=== PATIENT | female | born 1965 | race Caucasian/White ===

== ENCOUNTER 2016-06-10 15:38 | Emergency (ER) | payer MEDICAID | END 2016-06-10 20:08 | disposition home or self-care (01) | DX: K59.00 Constipation, unspecified (principal); D68.51 Activated protein C resistance; Z79.01 Long term (current) use of anticoagulants; Z90.3 Acquired absence of stomach [part of]; Z86.718 Personal history of other venous thrombosis and embolism; Z86.711 Personal history of pulmonary embolism; I10 Essential (primary) hypertension; Z98.84 Bariatric surgery status; Z98.0 Intestinal bypass and anastomosis status ==

== ENCOUNTER 2016-06-13 09:38 | Emergency (ER) | payer MEDICAID ==
[2016-06-13] MEDS ORDERED: SODIUM CHLORIDE 0.9% 1,000 ML IV ONE ×2 (12:11→12:12)
[2016-06-13] MEDS ORDERED: PROMETHAZINE INJ 12.5 MG in SODIUM CHLORIDE 0.9% 50 ML IV STA (12:11)
[2016-06-13] MEDS ORDERED: POLYETHYLENE GLYCOL 3350 17 GM PACKET PO STA (12:11)
[2016-06-13] MEDS ORDERED: PROMETHAZINE 25 MG/1 ML VIAL ONE (12:19)
[2016-06-13] MEDS ORDERED: POLYETHYLENE GLYCOL 3350 17 GM PACKET ONE (12:19)
== END 2016-06-13 15:12 | disposition home or self-care (01) ==
DX: K62.5 Hemorrhage of anus and rectum (principal); K59.00 Constipation, unspecified; R11.2 Nausea with vomiting, unspecified; L02.818 Cutaneous abscess of other sites; Z59.0 Homelessness; Z86.711 Personal history of pulmonary embolism; Z86.718 Personal history of other venous thrombosis and embolism
CPT/HCPCS: 36415; 80053; 81003; 83690; 85025; 96361; 96365; 99283; 99284; A9270

== ENCOUNTER 2016-07-06 11:03 | Emergency (ER) | payer MEDICAID ==
[2016-07-06] MEDS ORDERED: DEXAMETHASONE 10 MG/ML VIAL PO STA (11:46)
[2016-07-06] MEDS ORDERED: DEXAMETHASONE 10 MG/ML VIAL ONE (11:52)
[2016-07-06] MEDS ORDERED: CHERRY SYRUP 10 ML UDC PO ONE (11:52)
== END 2016-07-06 12:50 | disposition home or self-care (01) ==
DX: S29.011A Strain of muscle and tendon of front wall of thorax, initial encounter (principal); X58.XXXA Exposure to other specified factors, initial encounter; I10 Essential (primary) hypertension; Z86.711 Personal history of pulmonary embolism; Z86.718 Personal history of other venous thrombosis and embolism; Z79.01 Long term (current) use of anticoagulants
CPT/HCPCS: 71101; 99283; A9270

== ENCOUNTER 2017-01-30 11:14 | Emergency (ER) | payer MEDICAID ==
[2017-01-30 11:35] VITALS: BP 141/90
--- NOTE | 2017-01-30 12:19 | ED Physician Documentation ---
PD HPI LOWER EXT INJURY - Stated complaint Stated Complaint: R ANKLE INJ - Chief complaint Chief Complaint: Ext Problem - History obtained from History obtained from: Patient - History of Present Illness PD HPI LOW EXT INJURY LOCATION: Other (She broke her right ankle 9 months ago, she says she was really noncompliant with treatment, was walking on it not wearing the boot and it never really healed well. 3 weeks ago she had an inversion injury of that ankle and fell, also injuring her left morrison and left great toe. She does have a history of DVT with factor V Leiden and is maintained on Eliquis with which she is compliant.) Review of Systems Cardiac: denies: Chest pain / pressure, Palpitations Respiratory: denies: Dyspnea, Cough GI: denies: Abdominal Pain PD PAST MEDICAL HISTORY - Past Medical History Past Medical History: Yes Cardiovascular: Hypertension, Deep vein thrombosis, Pulmonary embolism, Other Respiratory: None Neuro: Seizure disorder Endocrine/Autoimmune: None GI: Other : None HEENT: None Psych: Depression, Anxiety, Panic attacks, Post traumatic stress disorder Musculoskeletal: None Derm: None, Other - Past Surgical History Past Surgical History: Yes 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, Hysterectomy, Breast reduction Cardiovascular: Vascular surgery HEENT: Tonsil/Adenoidectomy - Present Medications Home Medications: Ambulatory Orders Medication Instructions Recorded Confirmed Lorazepam [Ativan] 1 mg PO TID 02/09/15 07/06/16 QUEtiapine [SEROquel] 600 mg PO QPM 02/09/15 07/06/16 Apixaban [Eliquis] 5 mg PO BID 06/10/16 07/06/16 Levetiracetam 1,000 mg PO BID 06/10/16 07/06/16 Prazosin [Minipress] 10 mg PO DAILY 06/10/16 07/06/16 Venlafaxine HCl [Effexor Xr] 300 mg PO DAILY 06/10/16 07/06/16 Promethazine [Phenergan] 25 mg PO Q6H PRN #30 tab 06/13/16 07/06/16 HYDROcod/ACETAM 5/325 [[place] 5/325] 1 - 2 ea PO Q6H PRN #15 tablet 07/06/16 HYDROcod/ACETAM 5/325 [[place] 5/325] 1 - 2 ea PO Q6H PRN #15 tablet 01/30/17 - Allergies Allergies/Adverse Reactions: Allergies Allergy/AdvReac Type Severity Reaction Status Date / Time cephalexin monohydrate * Allergy Welts Verified 07/06/16 11:10 [From [employer]] - Social History Does the pt smoke?: No Smoking Status: Never smoker Does the pt drink ETOH?: Yes Does the pt have substance abuse?: No - Immunizations Immunizations are current?: Yes - POLST Patient has POLST: No PD ED PE NORMAL - Vitals Vital signs reviewed: Yes - General General: Alert and oriented X 3, No acute distress - Extremities Extremities: Other (Right ankle is mildly swollen but nontender with full range of motion. The left morrison is tender anteriorly with some calf swelling but no calf tenderness. That was the site of her prior DVT and she says the swelling is chronic. She also has a 50% subungual hematoma of the left great toe and it is tender.) - Neuro Neuro: Alert and oriented X 3, Normal speech - Psych Psych: Normal mood, Normal affect Results - Vitals Vitals: Vital Signs - 24 hr 01/30/17 11:30 Temperature 35.8 C L Heart Rate 76 Respiratory 16 Rate Blood Pressure 141/90 H O2 Saturation 100 Oxygen O2 Source Room air - Rads (name of study) X-ray of the right ankle, left big toe, and left tib-fib Radiology: EMP read contemporaneously (Left side is negative, there is a incomplete union of the Blair B fracture of the right ankle.) PD MEDICAL DECISION MAKING - ED course ED course: 51-year-old woman with musculoskeletal injuries of both lower extremities, the right ankle and left tib-fib. DVT was considered, however the mechanism of injury explains her tenderness and she is therapeutically anticoagulated. The ankle has an incomplete union, 9 months later, she admits to being noncompliant with nonweightbearing status and orthopedic follow-up, she is encouraged to follow-up with an orthopedist now. She has been weightbearing for 9 months so I do not think there is any reason to make her nonweightbearing pending that follow-up. Departure - Departure Disposition: 01 Home, Self Care Clinical Impression: Anticoagulant long-term use Sprain of left knee/leg Qualifiers: Encounter type: initial encounter Qualified Code(s): S83.92XA - Sprain of unspecified site of left knee, initial encounter Closed right ankle fracture Qualifiers: Encounter type: subsequent encounter Fracture healing: with delayed healing Qualified Code(s): S82.891G - Other fracture of right lower leg, subsequent encounter for closed fracture with delayed healing Contusion of toe, left Qualifiers: Encounter type: initial encounter Toe: great toe Damage to nail status: with damage Qualified Code(s): S90.212A - Contusion of left great toe with damage to nail, initial encounter Condition: Good Record reviewed to determine appropriate education?: Yes Instructions: Ankle Fx Follow-Up: [facility] [Provider Group] Prescriptions: HYDROcod/ACETAM 5/325 [[place] 5/325] 1 - 2 ea PO Q6H PRN #15 tablet PRN Reason: Pain Comments: Call the orthopedic office today for a follow-up appointment. Return if worse. Your blood pressure was elevated today on check into the emergency department. This does not mean that you have hypertension, it is a common phenomenon to come to the emergency department and have elevated blood pressure. I recommend that she see your primary care physician within the week to have it rechecked when you are feeling better. Do not drink or drive while taking narcotic pain medication. Note that many narcotic pain relievers also contain Tylenol/acetaminophen. Please ensure that your total dose of acetaminophen from all sources does not exceed 3 g (3000 mg) per day. You may get constipated while on this medication. Take a stool softener such as Colace twice a day while you are on it. Also add an [id number] laxative such as senna or MiraLAX on any day that you do not have a bowel movement. If you received a narcotic pain medication or sedative while in the emergency department, do not drive for the next 24 hours.
--- NOTE | 2017-01-30 13:56 | XRAY Preliminary Report ---
Exam: XR Ankle 3 View RT IMPRESSION: 1. Consistent with healing distal fibular fracture (Bliar B) with incomplete osseous union. 2. Equivocal minor joint effusion and anterior soft tissue swelling. [facility] SITE ID: [id number]
--- NOTE | 2017-01-30 13:58 | XRAY Preliminary Report ---
Exam: XR Toe(s) LT IMPRESSION: 1. No convincing fracture or bony malalignment. [facility] SITE ID: [id number]
--- NOTE | 2017-01-30 13:58 | XRAY Report ---
EXAM: RIGHT ANKLE RADIOGRAPHY EXAM DATE: 01/30/2017 12:45 PM. CLINICAL HISTORY: Right ankle pain and swelling/ injury. COMPARISON: None available. TECHNIQUE: 3 views. FINDINGS: Bones: Mildly distracted oblique fracture of distal fibula at and above the level of the ankle joint. Fracture lines are somewhat indistinct and there is some reactive bony sclerosis by the fracture sit e. No angular deformity. No other focal bony abnormality. Joints: No subluxation or gross mortise asymmetry. Equivocal minor ankle joint effusion. Soft Tissues: Possible anterior soft tissue swelling. IMPRESSION: 1. Consistent with healing distal fibular fracture (Blair B) with incomplete osseous union. 2. Equivocal minor joint effusion and anterior soft tissue swelling. [facility] Referring Provider Line: [phone] SITE ID: [id number]
--- NOTE | 2017-01-30 14:00 | XRAY Preliminary Report ---
Exam: XR Tib/Fib LT IMPRESSION: 1. No fracture or bony malalignment. [facility] SITE ID: [id number]
--- NOTE | 2017-01-30 14:01 | XRAY Report ---
EXAM: RIGHT GREAT TOE RADIOGRAPHY EXAM DATE: 01/30/2017 01:10 PM. CLINICAL HISTORY: Box fell on great toe. Swelling and discoloration distal great toe. COMPARISON: None. TECHNIQUE: 3 views. FINDINGS: Bones: No apparent fracture or bone lesion. Joints: No subluxation. Joint spaces are preserved. Soft Tissues: Some soft tissue swelling. Modest vascular calcification noted. IMPRESSION: 1. No convincing fracture or bony malalignment. [facility] Referring Provider Line: [phone] SITE ID: [id number]
--- NOTE | 2017-01-30 14:03 | XRAY Report ---
EXAM: 1. TIBIA/FIBULA RADIOGRAPHY EXAM DATE: 01/30/2017 01:08 PM. CLINICAL HISTORY: Edema and discoloration upper anterior medial lower leg. Object fell on leg. COMPARISON: None. TECHNIQUE: 2 views. FINDINGS: Bones: No fracture or bone lesion. Joints: No subluxation of knee and ankle joints. Soft Tissues: Some soft tissue swelling. No soft tissue emphysema or radiopaque foreign body. IMPRESSION: 1. No fracture or bony malalignment. [facility] Referring Provider Line: [phone] SITE ID: [id number]
== END 2017-01-30 14:36 | disposition home or self-care (01) ==
LOC: ED 11:14
DX: S83.92XA Sprain of unspecified site of left knee, initial encounter (principal); S82.891G Other fracture of right lower leg, subsequent encounter for closed fracture with delayed healing; S90.212A Contusion of left great toe with damage to nail, initial encounter; W19.XXXA Unspecified fall, initial encounter; X50.9XXA Other and unspecified overexertion or strenuous movements or postures, initial encounter; I10 Essential (primary) hypertension; D68.51 Activated protein C resistance; Z86.718 Personal history of other venous thrombosis and embolism; Z86.711 Personal history of pulmonary embolism; Z79.01 Long term (current) use of anticoagulants
CPT/HCPCS: 73660; 99283; 99284

== ENCOUNTER 2018-01-23 15:53 | Outpatient (CLI) | payer MEDICAID | END 2018-01-23 15:54 | disposition home or self-care (01) | LOC: LAB.R 15:53 | PROVIDERS: ATTEND Obstetrics & Gynecology | DX: N76.5 Ulceration of vagina (principal) | CPT/HCPCS: 81599 ==

== ENCOUNTER 2018-01-23 16:01 | Outpatient (CLI) | payer MEDICAID ==
[2018-01-23 20:31] LABS: FOLLICLE STIMULATING HORMONE 95.41 mIU/mL
[2018-01-23 20:32] LABS: LUTEINIZING HORMONE 88.49 mIU/mL
== END 2018-01-23 16:02 | disposition home or self-care (01) ==
LOC: LAB 16:01
PROVIDERS: ATTEND Obstetrics & Gynecology
DX: N95.1 Menopausal and female climacteric states (principal); N76.5 Ulceration of vagina
CPT/HCPCS: 36415; 81599; 82670; 83001; 83002

== ENCOUNTER 2019-03-09 12:01 | Outpatient (CLI) | payer MEDICAID ==
[2019-03-09 12:25] LABS: BASOPHILS % (AUTO) 0.5 %; EOSINOPHILS % (AUTO) 0.4 %; HGB - HEMOGLOBIN 10.7 g/dL (12.0-16.0); LYMPHOCYTES # (AUTO) 1.2 10^3/uL (1.5-3.5); LYMPHOCYTES % (AUTO) 14.9 %; MEAN CORPUSCULAR HEMOGLOBIN 25.9 pg (27.0-31.0); MEAN CORPUSCULAR HGB CONC 31.1 g/dL (32.0-36.0); MEAN CORPUSCULAR VOLUME 83.3 fL (81.0-99.0); MEAN PLATELET VOLUME 9.7 fL (7.9-10.8); MONOCYTES # (AUTO) 0.7 10^3/uL (0.0-1.0); MONOCYTES % (AUTO) 8.7 %; NEUTROPHILS # (AUTO) 6.1 10^3/uL (1.5-6.6); NEUTROPHILS % (AUTO) 75.1 %; PLT - PLATELET COUNT 233 10^3/uL (130-450); RED BLOOD COUNT 4.13 10^6/uL (4.20-5.40); WHITE BLOOD COUNT 8.1 x10^3/uL (4.8-10.8)
[2019-03-09 13:02] LABS: PLATELET ESTIMATE, MANUAL NORMAL (130-450,000) (NORMAL); PLATELET MORPHOLOGY NORMAL APPEARANCE (NORMAL)
[2019-03-09 14:09] LABS: ALBUMIN 3.3 g/dL (3.2-5.5); ALBUMIN/GLOBULIN RATIO 0.8 (1.0-2.2); BILIRUBIN,TOTAL 1.1 mg/dL (0.2-1.0); CALCIUM 8.8 mg/dL (8.5-10.3); CREATININE 0.8 mg/dL (0.4-1.0); TOTAL PROTEIN 7.4 g/dL (6.7-8.2)
== END 2019-03-09 12:02 | disposition home or self-care (01) ==
LOC: LAB 12:01
PROVIDERS: ATTEND Family Medicine
DX: Z79.01 Long term (current) use of anticoagulants (principal); D68.51 Activated protein C resistance; R10.11 Right upper quadrant pain; I10 Essential (primary) hypertension
CPT/HCPCS: 36415; 80053; 83690; 85025

== ENCOUNTER 2019-04-06 10:50 | Emergency (ER) | payer MEDICAID ==
--- NOTE | 2019-04-06 12:36 | ED Physician Documentation ---
PD HPI GI BLEED - Stated complaint Stated Complaint: FEMALE - Chief complaint Chief Complaint: General - History obtained from History obtained from: Patient - History of Present Illness Timing - onset: How many days ago (few) Timing - duration: Days (few) Timing - details: Gradual onset, Still present (noted feeling of "ball" in rectal area with BMs. Having stool out and hurting. Noted red blood with wiping. NO abd pain. No fever.), Intermittant (with BM only initially, today with persistent rectal pain after BM and still feels like mass at rectum.) Associated symptoms: BRBPR, Constipation (feels firm stools). No: Vomiting, Abdominal pain, Loss of appetite Contributing factors: Anticoagulated. No: Sick contact, NSAID use Similar symptoms before: Has not had sx before Recently seen: Not recently seen Review of Systems Constitutional: reports: Myalgias (chronic). denies: Fever, Chills GI: reports: Constipation, Bloody / black stool. 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, Hysterectomy, Breast reduction Cardiovascular: Vascular surgery HEENT: Tonsil/Adenoidectomy - Present Medications Home Medications: Ambulatory Orders Medication Instructions Recorded Confirmed Lorazepam [Ativan] 1 mg PO TID 02/09/15 09/30/18 Apixaban [Eliquis] 5 mg PO BID 06/10/16 09/30/18 Prazosin [Minipress] 10 mg PO DAILY 06/10/16 09/30/18 levETIRAcetam [Levetiracetam] 1,000 mg PO BID 06/10/16 09/30/18 Promethazine [Phenergan] 25 mg PO Q6H PRN #30 tab 06/13/16 09/30/18 Lisinopril 10 mg PO DAILY 09/30/18 09/30/18 traZODone [Desyrel] 1 each PO QPM 09/30/18 09/30/18 Estradiol [Vagifem] 1 each VG Q48H 10/05/18 10/05/18 Ibuprofen [Motrin] 1 - 2 cap PO Q6HR PRN 10/05/18 10/05/18 Docusate Sodium 100 mg PO DAILY #30 capsule 04/06/19 Hydrocortisone Acetate [Anucort-Hc] 25 mg RC DAILY #5 supp.rect 04/06/19 Lidocaine Ointment 5% [Xylocaine 1 applic TOP QID PRN #1 tube 04/06/19 Ointment 5%] - Allergies Allergies/Adverse Reactions: Allergies Allergy/AdvReac Type Severity Reaction Status Date / Time cephalexin monohydrate * Allergy Welts Verified 07/06/16 11:10 [From [employer]] - Social History Does the pt smoke?: No Smoking Status: Unknown if ever smoked Does the pt drink ETOH?: Yes Does the pt have substance abuse?: No - Immunizations Immunizations are current?: Yes - POLST Patient has POLST: No PD ED PE NORMAL - Vitals Vital signs reviewed: Yes - General General: Alert and oriented X 3, No acute distress, Well developed/nourished - Cardiac Cardiac: RRR, No murmur - Respiratory Respiratory: Clear bilaterally - Abdomen Abdomen: Soft, Non tender, Non distended - Female Female : Deferred - Rectal Rectal: Other (external is okay, though small serosal tear visible, not bleeding. Digital exam tender with palpable hemorrhoid that is not hard. ) - Back Back: No CVA TTP - Derm Derm: Normal color, Warm and dry Results - Vitals Vitals: Vital Signs - 24 hr 04/06/19 04/06/19 11:12 12:53 Temperature 37.7 C H 37.4 C Heart Rate 117 H 82 Respiratory 18 16 Rate Blood Pressure 143/97 H 148/91 H O2 Saturation 99 99 Oxygen O2 Source Room air PD MEDICAL DECISION MAKING - ED course Complexity details: considered differential (external is okay, though small serosal tear visible, not bleeding. Digital exam tender with palpable hemorrhoid that is not hard. ), d/w patient Departure - Departure Disposition: 01 Home, Self Care Clinical Impression: Rectal pain, Internal hemorrhoid Serosal tear of rectum Qualifiers: Encounter type: initial encounter Qualified Code(s): S36.63XA - Laceration of rectum, initial encounter Condition: Stable Record reviewed to determine appropriate education?: Yes Instructions: ED Hemorrhoids Follow-Up: JAIME ARANGO [Primary Care Provider] - Prescriptions: Docusate Sodium 100 mg PO DAILY #30 capsule Hydrocortisone Acetate [Anucort-Hc] 25 mg RC DAILY #5 supp.rect Lidocaine Ointment 5% [Xylocaine Ointment 5%] 1 applic TOP QID PRN #1 tube PRN Reason: Pain Comments: Stay well-hydrated. Tylenol if needed for pains. Use the steroid suppository daily to decrease inflammation and provide lubrication at the rectal opening. This should help heal up the small tear more easily and decrease inflammation of the internal hemorrhoid. You can use lidocaine topically to try to help with the pain as well. Docusate stool softener daily for the next week or 2 and then as needed. Recheck if not improving well over the next few days. Discharge Date/Time: 04/06/19 13:14
[2019-04-06 12:53] VITALS: BP 148/91
[2019-04-06] MEDS ORDERED: DOCUSATE SODIUM 100 MG CAPSULE PO STA (12:56)
[2019-04-06] MEDS ORDERED: ACETAMINOPHEN 325 MG TABLET PO STA (12:56)
[2019-04-06] MEDS ORDERED: HYDROCORTISONE 25 MG SUPPOSITORY PR STA (12:56)
[2019-04-06] MEDS ORDERED: LIDOCAINE OINTMENT 5% 35.44 GM TUBE TOP STA (13:06)
== END 2019-04-06 13:14 | disposition home or self-care (01) ==
LOC: ED 10:50
DX: S36.63XA Laceration of rectum, initial encounter (principal); X58.XXXA Exposure to other specified factors, initial encounter; K64.8 Other hemorrhoids; K59.00 Constipation, unspecified; I10 Essential (primary) hypertension; Z86.718 Personal history of other venous thrombosis and embolism; Z86.711 Personal history of pulmonary embolism; Z79.01 Long term (current) use of anticoagulants
CPT/HCPCS: 99283; A9270; J3490

== ENCOUNTER 2019-04-09 09:32 | Outpatient (CLI) | payer MEDICAID ==
[2019-04-09] MEDS ORDERED: IOVERSOL 320 100 ML VIAL IVP ONE (10:10)
[2019-04-09] MEDS ORDERED: IOVERSOL 320 50 ML VIAL ONE (10:10)
[2019-04-09] MEDS: IOVERSOL 320 100 ML VIAL IVP ONE (15:58)
[2019-04-09] MEDS: IOVERSOL 320 50 ML VIAL PO SCH (15:59)
--- NOTE | 2019-04-10 16:50 | CT Report ---
Reason: ABD PAIN AND WEIGHT LOSS Procedure Date: 04/09/2019 Accession Number: [id number] / [id number] Procedure: CT - Abdomen/Pelvis W CPT Code: Final Report FULL RESULT: EXAM: CT ABDOMEN AND PELVIS EXAM DATE: 04/09/2019 11:52 AM. CLINICAL HISTORY: ABD PAIN AND WEIGHT LOSS. COMPARISONS: ABDOMEN/PELVIS W/O 06/10/2016 6:21 PM. TECHNIQUE: Routine helical CT imaging was performed through the abdomen and pelvis. IV contrast: OPTI 320 100ML. Enteric contrast: Yes. Reconstructions: Coronal and sagittal. In accordance with CT protocol optimization, one or more of the following dose reduction techniques were utilized for this exam: automated exposure control, adjustment of mA and/or KV based on patient size, or use of iterative reconstructive technique. FINDINGS: Lung Bases: Unremarkable. Liver: Enlarged right hepatic lobe measuring 25 cm in length. Diffuse low attenuation consistent with hepatic steatosis. Gallbladder/Bile Ducts: Cholecystectomy. Common bile duct measures 10 mm. Spleen: Calcified granulomas. Pancreas: Normal. Adrenal Glands: Normal. Kidneys: No masses or hydronephrosis. Peritoneal Cavity/Bowel: No free fluid, free air or adenopathy. Vickey-en-Y gastric bypass. No evidence of small bowel obstruction, with oral contrast seen extending into the ileum. Appendix not visualized, however no secondary signs of inflammation in the right lower quadrant. Pelvic Organs: Status post hysterectomy. Vasculature: No aneurysms or other significant abnormality. Bones: Schmorl's nodes in the T11, T12, and L2 superior endplates with associated mild wedging, stable. Other: None. IMPRESSION: 1. Vickey-en-Y gastric bypass without evidence of bowel obstruction. 2. Enlarged steatotic liver. [facility]
== END 2019-04-09 09:33 | disposition home or self-care (01) ==
LOC: DI 09:32
PROVIDERS: ATTEND Family Medicine
DX: R10.9 Unspecified abdominal pain (principal); K76.0 Fatty (change of) liver, not elsewhere classified; R63.4 Abnormal weight loss; Z98.84 Bariatric surgery status
CPT/HCPCS: 74177; Q9967

== ENCOUNTER 2019-06-05 13:14 | Emergency (ER) | payer MEDICAID ==
--- NOTE | 2019-06-05 14:06 | ED Physician Documentation ---
History of Present Illness - Stated complaint Stated Complaint: LT LEG SWELLING W/ PX - Chief complaint Chief Complaint: Ext Problem - History obtained from History obtained from: Patient - History of Present Illness Timing: Other (53-year-old woman with history of uterine cancer, DVT, factor V Leiden, extensive bowel surgeries presents with left leg swelling starting about a week ago. More subacutely she has had shortness of breath, weight loss, and just general ill feeling which is being worked up by her physician thoroughly.) Review of Systems Constitutional: reports: Fatigue, Weight Loss. denies: Fever, Chills Throat: denies: Dental pain / toothache, Sore throat Cardiac: denies: Chest pain / pressure, Palpitations Respiratory: reports: Dyspnea. denies: Cough GI: reports: Abdominal Pain. 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, Hysterectomy, Breast reduction Cardiovascular: Vascular surgery HEENT: Tonsil/Adenoidectomy - Present Medications Home Medications: Ambulatory Orders Medication Instructions Recorded Confirmed Lorazepam [Ativan] 1 mg PO TID 02/09/15 09/30/18 Apixaban [Eliquis] 5 mg PO BID 06/10/16 09/30/18 Prazosin [Minipress] 10 mg PO DAILY 06/10/16 09/30/18 levETIRAcetam [Levetiracetam] 1,000 mg PO BID 06/10/16 09/30/18 Promethazine [Phenergan] 25 mg PO Q6H PRN #30 tab 06/13/16 09/30/18 lisinopriL [Lisinopril] 10 mg PO DAILY 09/30/18 09/30/18 traZODone [Desyrel] 1 each PO QPM 09/30/18 09/30/18 Estradiol [Vagifem] 1 each VG Q48H 10/05/18 10/05/18 Ibuprofen [Motrin] 1 - 2 cap PO Q6HR PRN 10/05/18 10/05/18 Docusate Sodium 100 mg PO DAILY #30 capsule 04/06/19 Hydrocortisone Acetate [Anucort-Hc] 25 mg RC DAILY #5 supp.rect 04/06/19 Lidocaine Ointment 5% [Xylocaine 1 applic TOP QID PRN #1 tube 04/06/19 Ointment 5%] - Allergies Allergies/Adverse Reactions: Allergies Allergy/AdvReac Type Severity Reaction Status Date / Time cephalexin monohydrate * Allergy Welts Verified 06/05/19 13:31 [From [employer]] - Social History Does the pt smoke?: No Smoking Status: Never smoker Does the pt drink ETOH?: Yes Does the pt have substance abuse?: No - Immunizations Immunizations are current?: Yes - POLST Patient has POLST: No PD ED PE NORMAL - Vitals Vital signs reviewed: Yes - General General: Alert and oriented X 3, No acute distress - HEENT HEENT: PERRL, EOMI - Neck Neck: Supple, no meningeal sign, No bony TTP - Cardiac Cardiac: RRR, No murmur - Respiratory Respiratory: No respiratory distress, Clear bilaterally - Abdomen Abdomen: Normal bowel sounds, Soft, Non tender - Back Back: No CVA TTP, No spinal TTP - Derm Derm: Normal color, Warm and dry - Extremities Extremities: Other (Mild left lower extremity edema without skin changes. Not tense. No tenderness.) - Neuro Neuro: Alert and oriented X 3, Normal speech Results - Vitals Vitals: Vital Signs - 24 hr 06/05/19 13:27 Temperature 36.8 C Heart Rate 118 H Respiratory 18 Rate Blood Pressure 114/78 O2 Saturation 97 Oxygen O2 Source Room air - Labs Labs: Laboratory Tests 06/05/19 06/05/19 06/05/19 14:30 14:30 14:30 WBC 16.5 H RBC 3.23 L Hgb 9.8 L Hct 29.2 L MCV 90.4 MCH 30.3 MCHC 33.6 RDW 18.6 H Plt Count 352 MPV 9.3 Neut # (Auto) 13.8 H Lymph # (Auto) 1.2 L [place] # (Auto) 1.3 H Eos # (Auto) 0.1 Baso # (Auto) 0.1 Absolute Nucleated RBC 0.00 Nucleated RBC % 0.0 Sodium 141 Potassium 3.5 Chloride 103 Carbon Dioxide 24 Anion Gap 14.0 H BUN 5 L Creatinine 0.7 Estimated GFR (MDRD) 87 L Glucose 95 Calcium 7.8 L Total Bilirubin 0.9 AST 153 H ALT 36 Alkaline Phosphatase 238 H Troponin I High Sens 5.3 B-Natriuretic Peptide Total Protein 5.8 L Albumin 2.2 L Globulin 3.6 Albumin/Globulin Ratio 0.6 L Lipase 29 06/05/19 14:30 WBC RBC Hgb Hct MCV MCH MCHC RDW Plt Count MPV Neut # (Auto) Lymph # (Auto) [place] # (Auto) Eos # (Auto) Baso # (Auto) Absolute Nucleated RBC Nucleated RBC % Sodium Potassium Chloride Carbon Dioxide Anion Gap BUN Creatinine Estimated GFR (MDRD) Glucose Calcium Total Bilirubin AST ALT Alkaline Phosphatase Troponin I High Sens B-Natriuretic Peptide 93 Total Protein Albumin Globulin Albumin/Globulin Ratio Lipase - Rads (name of study) DVT ultrasound Radiology: EMP read contemporaneously (chronic Occlusive clot without acute DVT) Chest x-ray Radiology: EMP read contemporaneously (Normal) Procedures - General procedure General procedure: I personally placed a 20-gauge IV in the right deep brachial vein using real- time ultrasound guidance for the CT. Unfortunately it quickly infiltrated. PD MEDICAL DECISION MAKING - ED course ED course: 53-year-old woman with history of DVT on anticoagulation presents with left leg swelling. No evidence of DVT on ultrasound. She is short of breath. Due to poor IV access, despite approximately 10 or 15 tries, we were unable to get an IV big enough for CT angiogram of the chest. As such BNP and troponin were done to rule out significant heart strain which were negative and a chest x-ray was done to rule out alternative causes of shortness of breath which was also negative. Departure - Departure Disposition: 01 Home, Self Care Clinical Impression: Pain of lower extremity Qualifiers: Laterality: left Qualified Code(s): M79.605 - Pain in left leg Dyspnea Qualifiers: Dyspnea type: dyspnea on exertion Qualified Code(s): R06.09 - Other forms of dyspnea Condition: Good Record reviewed to determine appropriate education?: Yes Instructions: ED Leg Swelling Unilateral Comments: There is no evidence of DVT today, I think your doctor is doing an excellent job of working up your other symptoms and she you should continue to coordinate with her on that. Return for new or worsening symptoms.
[2019-06-05 14:44] LABS: BASOPHILS # (AUTO) 0.1 10^3/uL (0.0-0.1); BASOPHILS % (AUTO) 0.4 %; EOSINOPHILS # (AUTO) 0.1 10^3/uL (0.0-0.7); EOSINOPHILS % (AUTO) 0.3 %; HGB - HEMOGLOBIN 9.8 g/dL (12.0-16.0); LYMPHOCYTES # (AUTO) 1.2 10^3/uL (1.5-3.5); MEAN CORPUSCULAR HEMOGLOBIN 30.3 pg (27.0-31.0); MEAN CORPUSCULAR HGB CONC 33.6 g/dL (32.0-36.0); MEAN CORPUSCULAR VOLUME 90.4 fL (81.0-99.0); MEAN PLATELET VOLUME 9.3 fL (7.9-10.8); MONOCYTES # (AUTO) 1.3 10^3/uL (0.0-1.0); MONOCYTES % (AUTO) 7.9 %; NEUTROPHILS # (AUTO) 13.8 10^3/uL (1.5-6.6); NEUTROPHILS % (AUTO) 83.8 %; PLT - PLATELET COUNT 352 10^3/uL (130-450); RED BLOOD COUNT 3.23 10^6/uL (4.20-5.40); RED CELL DISTRIBUTION WIDTH 18.6 % (12.0-15.0); WHITE BLOOD COUNT 16.5 x10^3/uL (4.8-10.8)
[2019-06-05 14:59] LABS: ALBUMIN 2.2 g/dL (3.2-5.5); ALBUMIN/GLOBULIN RATIO 0.6 (1.0-2.2); BILIRUBIN,TOTAL 0.9 mg/dL (0.2-1.0); CALCIUM 7.8 mg/dL (8.5-10.3); CREATININE 0.7 mg/dL (0.4-1.0); TOTAL PROTEIN 5.8 g/dL (6.7-8.2)
[2019-06-05] MEDS ORDERED: IOVERSOL 320 100 ML VIAL IVP ONE (15:33)
--- NOTE | 2019-06-05 17:06 | Ultrasound Report ---
Reason: L leg swelling Procedure Date: 06/05/2019 Accession Number: [id number] / [id number] Procedure: US - Duplex Ext Veins Left CPT Code: Final Report FULL RESULT: EXAM: LEFT LOWER EXTREMITY VENOUS ULTRASOUND EXAM DATE: 06/05/2019 04:59 PM. CLINICAL HISTORY: L leg swelling. COMPARISON: None. TECHNIQUE: Real-time sonographic vascular imaging was performed by the bullet maker through the lower extremity utilizing both color-flow and Doppler spectral analysis. Multiple corporate sales representative static images were saved for review. FINDINGS: Common Femoral Vein (CFV): Normal. CFV-GSV Junction: Normal. There is a nonocclusive fibrotic band/chronic thrombus for short segment in greater saphenous vein/superficial vein of left proximal thigh. Profunda Femoral Vein (PFV): Normal. Femoral Vein (FV) Prox: Normal. Femoral Vein (FV) Mid: Normal. Femoral Vein (FV) Dist: Normal. Popliteal Vein: Normal. Posterior Tibial Veins: Slightly suboptimal assessment. Normal. Peroneal Veins: Slightly suboptimal assessment. Normal. Contralateral Side CFV: Normal. Other: None. IMPRESSION: No evidence for deep venous thrombosis. A Nonocclusive fibrotic band/chronic thrombus for short segment in greater saphenous vein/superficial vein of left proximal thigh. [facility]
--- NOTE | 2019-06-05 18:07 | XRAY Report ---
Reason: dyspnea Procedure Date: 06/05/2019 Accession Number: [id number] / [id number] Procedure: XR - Chest 2 View X-Ray CPT Code: 06321 Final Report FULL RESULT: EXAM: CHEST RADIOGRAPHY EXAM DATE: 06/05/2019 05:44 PM. CLINICAL HISTORY: Dyspnea. COMPARISON: RIBS W/PA CHEST LT 07/06/2016 11:49 AM ABDOMEN/PELVIS W/ 04/09/2019 11:45 AM. TECHNIQUE: 2 views. FINDINGS: Lungs/Pleura: No focal opacities evident. No pleural effusion. No pneumothorax. Normal volumes. Mediastinum: Heart and mediastinal contours are unremarkable. Other: None. IMPRESSION: Normal 2-view chest radiography. [facility]
[2019-06-05 18:28] VITALS: BP 102/74
== END 2019-06-05 18:31 | disposition home or self-care (01) ==
LOC: ED 13:14
DX: M79.605 Pain in left leg (principal); I82.812 Embolism and thrombosis of superficial veins of left lower extremity; R06.02 Shortness of breath; Z86.711 Personal history of pulmonary embolism; Z86.718 Personal history of other venous thrombosis and embolism; Z79.01 Long term (current) use of anticoagulants; I10 Essential (primary) hypertension; D68.51 Activated protein C resistance; Z85.42 Personal history of malignant neoplasm of other parts of uterus; Z90.710 Acquired absence of both cervix and uterus
CPT/HCPCS: 36415; 71046; 80053; 83690; 83880; 84484; 85025; 99283; 99284

== ENCOUNTER 2019-06-20 16:24 | Emergency (ER) | payer MEDICAID ==
--- NOTE | 2019-06-20 16:49 | ED Physician Documentation ---
PD HPI ABD PAIN - Stated complaint Stated Complaint: SWELLING,DIZZINESS - Chief complaint Chief Complaint: General - History obtained from History obtained from: Patient - History of Present Illness Timing - onset: How many days ago (she has had few days of abd pain and fullness. Was in hospital (thought it was [facility], but we tracked down that it was [facility]) for several days for abd pain and Dx with liver cirrhosis and ascites. discharged this past Tues/5 days ago. Then had outpt upper/lower endoscopies 2 days ago. Having cramps and pains since that. No vomiting, but nausea. Since discharge from [place], she had felt confused about which of her meds to stop and new ones to get. She believes she was Rx a diuretic. She did not bring her med bottles with her today. Does not have a list. Wanting to know which meds to be taking.) Timing - duration: Days Timing - details: Gradual onset, Still present Quality: Cramping, Aching, Fullness/distended Location: All over / everywhere, LLQ Radiation: No: Chest, Left flank, Right flank Improved by: Position (lying down) Worsened by: Eating, Position (sitting up) Associated symptoms: Nausea. No: Fever, Vomiting, Diarrhea, Constipation (had not had BM for past several days, but just did colon prep 3-4 days ago.) Similar symptoms before: Has not had sx before Recently seen: Clinic, Admitted Review of Systems Constitutional: denies: Fever Nose: denies: Rhinorrhea / runny nose, Congestion Throat: denies: Sore throat Respiratory: denies: Cough GI: reports: Abdominal Pain, Abdominal Swelling, Nausea. denies: Vomiting, Constipation, Diarrhea : denies: Dysuria, Frequency Neurologic: reports: Generalized weakness, Confused. 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 and currettage, Hysterectomy, Breast reduction Cardiovascular: Vascular surgery HEENT: Tonsil/Adenoidectomy - Present Medications Home Medications: Ambulatory Orders Medication Instructions Recorded Confirmed Lorazepam [Ativan] 1 mg PO TID 02/09/15 09/30/18 Apixaban [Eliquis] 5 mg PO BID 06/10/16 09/30/18 Prazosin [Minipress] 10 mg PO DAILY 06/10/16 09/30/18 levETIRAcetam [Levetiracetam] 1,000 mg PO BID 06/10/16 09/30/18 Promethazine [Phenergan] 25 mg PO Q6H PRN #30 tab 06/13/16 09/30/18 lisinopriL [Lisinopril] 10 mg PO DAILY 09/30/18 09/30/18 traZODone [Desyrel] 1 each PO QPM 09/30/18 09/30/18 Estradiol [Vagifem] 1 each VG Q48H 10/05/18 10/05/18 Ibuprofen [Motrin] 1 - 2 cap PO Q6HR PRN 10/05/18 10/05/18 Docusate Sodium 100 mg PO DAILY #30 capsule 04/06/19 Hydrocortisone Acetate [Anucort-Hc] 25 mg RC DAILY #5 supp.rect 04/06/19 Lidocaine Ointment 5% [Xylocaine 1 applic TOP QID PRN #1 tube 04/06/19 Ointment 5%] Oxycodone HCl 5 mg PO Q8H PRN #12 tablet 06/20/19 Promethazine [Phenergan] 25 mg PO Q6H PRN #10 tab 06/20/19 Spironolactone 25 mg PO DAILY #20 tablet 06/20/19 - Allergies Allergies/Adverse Reactions: Allergies Allergy/AdvReac Type Severity Reaction Status Date / Time cephalexin monohydrate * Allergy Welts Verified 06/20/19 16:29 [From [employer]] - Social History Does the pt smoke?: No Smoking Status: Never smoker Does the pt drink ETOH?: Yes Does the pt have substance abuse?: No - Immunizations Immunizations are current?: Yes - POLST Patient has POLST: No PD ED PE NORMAL - Vitals Vital signs reviewed: Yes - General General: Alert and oriented X 3, Well developed/nourished, Other (appears uncomfortable) - HEENT HEENT: Pharynx benign. No: Moist mucous membranes - Neck Neck: Supple, no meningeal sign, No adenopathy - Cardiac Cardiac: RRR, No murmur - Respiratory Respiratory: Clear bilaterally - Abdomen Abdomen: Soft, Non distended, No organomegaly, Other (tender lower abd left mostly but some mild tenderness and distension, not tense, diffusely. ). No: Normal bowel sounds (hyperactive) - Female Female : Deferred - Rectal Rectal: Deferred - Back Back: No CVA TTP - Derm Derm: Normal color, Warm and dry - Neuro Neuro: Alert and oriented X 3, No motor deficit, Normal speech Results - Vitals Vitals: Vital Signs - 24 hr 06/20/19 06/20/19 16:29 20:05 Temperature 36.8 C Heart Rate 114 H 95 Respiratory 17 19 Rate Blood Pressure 119/83 H 100/75 O2 Saturation 98 96 Oxygen O2 Source Room air - Labs Labs: Laboratory Tests 06/20/19 06/20/19 18:45 18:45 WBC 18.5 H RBC 3.19 L Hgb 9.4 L Hct 29.3 L MCV 91.8 MCH 29.5 MCHC 32.1 RDW 21.2 H Plt Count 449 MPV 9.4 Neut # (Auto) 15.1 H Lymph # (Auto) 1.7 [place] # (Auto) 1.4 H Eos # (Auto) 0.1 Baso # (Auto) 0.1 Absolute Nucleated RBC 0.00 Nucleated RBC % 0.0 Manual Slide Review Indicated Platelet Estimate INCREASED (>450,000) Platelet Morphology NORMAL APPEARANCE RBC Morph Micro Appear 2+ TARGET CELLS Sodium 139 Potassium 3.2 L Chloride 96 L Carbon Dioxide 30 Anion Gap 13.0 BUN < 5 L Creatinine 0.7 Estimated GFR (MDRD) 87 L Glucose 97 Calcium 7.9 L Magnesium 2.0 Total Bilirubin 1.4 H AST 100 H ALT 27 Alkaline Phosphatase 198 H Total Protein 6.0 L Albumin 2.1 L Globulin 3.9 Albumin/Globulin Ratio 0.5 L Lipase 24 - Rads (name of study) abd CT Radiology: Prelim report reviewed (some ascites. Enlarged liver as previous. No acute process. ), See rad report PD MEDICAL DECISION MAKING - ED course Complexity details: reviewed old records (got discharge summary [facility] and GI report from [facility] (for scopes). Reviewed her med lists from those and can recommend the most important meds to continue. She was Rx Lasix and spironolactone. Given mild ascites and low K, I will just recommend the spironolactone for now. She has PMD appt this coming week, so her PMD can do more complete med reconciliation.), reviewed results (CT done as is having pain with distension 2 days post colonoscopy, so need to ensure no SBO nor perforation. The CT was okay. There is ascites, which would be expected. Not enough to need tapping. She should be on diuretic, but is not taking any meds for 5 days as confused about recommendations. Does not have her discharge instructions nor med bottles with her. ), re-evaluated patient (difficult IV start, so gave meds IM and PO and she is much improved with those. Feeling able to go home. ), considered differential, d/w patient Departure - Departure Disposition: Home, Self Care Clinical Impression: Status post colonoscopy Abdominal pain Qualifiers: Abdominal location: generalized Qualified Code(s): R10.84 - Generalized abdominal pain Ascites Qualifiers: Ascites type: other type Qualified Code(s): R18.8 - Other ascites Condition: Stable Record reviewed to determine appropriate education?: Yes Follow-Up: JAIME ARANGO [Primary Care Provider] - Prescriptions: Oxycodone HCl 5 mg PO Q8H PRN #12 tablet PRN Reason: Pain Promethazine [Phenergan] 25 mg PO Q6H PRN #10 tab PRN Reason: Nausea / Vomiting Spironolactone 25 mg PO DAILY #20 tablet Comments: I would be sure to continue at least these current medicines: Lamotrigine (Lamictal) and levitiracetam (Keppra) for your seizures Pantoprazole (Protonix) acid reducing for your stomach Eliquis blood thinner Seroquel at night for sleep Hydroxyzine as needed for itchiness Add in promethazine if needed for nausea. Spironolactone diuretic (water pill) Oxycodone as needed for pain Follow-up with Dr. Arango as planned this coming week and have her finalize and verify the medication list that they want to continue on. At this point we just had the one from the colonoscopy records. Be sure to bring all your medicines to your visit to your primary care so they can check all the medicines to reconcile your list. Discharge Date/Time: 06/20/19 21:25
[2019-06-20] MEDS ORDERED: ONDANSETRON ODT 4 MG TABLET TL STA (17:30)
[2019-06-20] MEDS ORDERED: SODIUM CHLORIDE 0.9% 1,000 ML IV ONE (17:35)
[2019-06-20] MEDS ORDERED: MORPHINE 2 MG/ML CARPUJECT IVP STA (17:35)
[2019-06-20] MEDS ORDERED: PROMETHAZINE 25 MG/1 ML VIAL IM STA (18:46)
[2019-06-20] MEDS ORDERED: HYDROmorphone 1 MG/ML CARPUJECT IM STA (18:46)
[2019-06-20] MEDS ORDERED: KETOROLAC 30 MG/ML VIAL IM STA (18:46)
--- NOTE | 2019-06-20 18:50 | CT Report ---
Reason: abd distension and pain; s/p colonoscopy Procedure Date: 06/20/2019 Accession Number: [id number] / [id number] Procedure: CT - Abdomen/Pelvis WO CPT Code: Final Report FULL RESULT: EXAM: CT ABDOMEN AND PELVIS (CT KUB) EXAM DATE: 06/20/2019 06:05 PM. CLINICAL HISTORY: Abd distension and pain; s/p colonoscopy. COMPARISONS: ABDOMEN/PELVIS W/O 06/10/2016 6:21 PM ABDOMEN/PELVIS W/ 04/09/2019 11:45 AM. TECHNIQUE: Routine axial helical CT imaging was performed through the abdomen and pelvis without IV contrast. Reconstructions: Coronal and sagittal. In accordance with CT protocol optimization, one or more of the following dose reduction techniques were utilized for this exam: automated exposure control, adjustment of mA and/or KV based on patient size, or use of iterative reconstructive technique. FINDINGS: Lung Bases: Small left pleural effusion is new compared to the prior exam. Right Kidney/Ureter: No stones, hydronephrosis, or hydroureter. No perinephric fat stranding. Left Kidney/Ureter: No stones, hydronephrosis, or hydroureter. No perinephric fat stranding. Other Solid Organs: Marked decreased attenuation of the liver consistent with fatty infiltration with an enlarged right lobe. Difficult to evaluate for any underlying masses given the degree of steatosis. Calcifications throughout the spleen which is normal in size. Pancreas is unremarkable in appearance. Adrenal glands are normal. Gallbladder/Bile Ducts: Status post cholecystectomy. Peritoneal Cavity: Small volume of ascites. Patient is status post gastric bypass. No free air. Mesenteric edema, nonspecific. Remainder of the bowel is unremarkable. Appendix is not identified. Pelvic Organs: Status post hysterectomy. Urinary bladder is collapsed. Otherwise unremarkable. Vasculature: Unremarkable. Other: Subcutaneous edema in the abdominal wall and proximal thighs compatible with third spacing. No acute bony abnormality. IMPRESSION: Marked hepatic steatosis is again seen, with an enlarged right lobe. This was also present on the prior exam. There is a new left pleural effusion and new small volume ascites compared to the prior exam from March 2019. RADIA
[2019-06-20 18:57] LABS: HGB - HEMOGLOBIN 9.4 g/dL (12.0-16.0); RED CELL DISTRIBUTION WIDTH 21.2 % (12.0-15.0)
[2019-06-20 19:02] LABS: BASOPHILS # (AUTO) 0.1 10^3/uL (0.0-0.1); BASOPHILS % (AUTO) 0.4 %; EOSINOPHILS # (AUTO) 0.1 10^3/uL (0.0-0.7); EOSINOPHILS % (AUTO) 0.5 %; LYMPHOCYTES # (AUTO) 1.7 10^3/uL (1.5-3.5); LYMPHOCYTES % (AUTO) 9.4 %; MEAN CORPUSCULAR HEMOGLOBIN 29.5 pg (27.0-31.0); MEAN CORPUSCULAR HGB CONC 32.1 g/dL (32.0-36.0); MEAN CORPUSCULAR VOLUME 91.8 fL (81.0-99.0); MEAN PLATELET VOLUME 9.4 fL (7.9-10.8); MONOCYTES # (AUTO) 1.4 10^3/uL (0.0-1.0); MONOCYTES % (AUTO) 7.3 %; NEUTROPHILS # (AUTO) 15.1 10^3/uL (1.5-6.6); NEUTROPHILS % (AUTO) 81.5 %; PLT - PLATELET COUNT 449 10^3/uL (130-450); RED BLOOD COUNT 3.19 10^6/uL (4.20-5.40); WHITE BLOOD COUNT 18.5 x10^3/uL (4.8-10.8)
[2019-06-20 19:15] LABS: ALBUMIN 2.1 g/dL (3.2-5.5); ALBUMIN/GLOBULIN RATIO 0.5 (1.0-2.2); ALKALINE PHOSPHATASE 198 IU/L (42-121); ALT ALANINE AMINOTRANSFERASE 27 IU/L (10-60); AST ASPARTATE AMINOTRANSFERASE 100 IU/L (10-42); BILIRUBIN,TOTAL 1.4 mg/dL (0.2-1.0); BUN - BLOOD UREA NITROGEN < 5 mg/dL (6-20); CALCIUM 7.9 mg/dL (8.5-10.3); CARBON DIOXIDE - CO2 30 mmol/L (21-32); CHLORIDE 96 mmol/L (101-111); CREATININE 0.7 mg/dL (0.4-1.0); GFR - MDRD 87 (>89); GLUCOSE 97 mg/dL (70-100); LIPASE 24 U/L (22-51); SODIUM 139 mmol/L (135-145)
[2019-06-20 19:30] LABS: PLATELET ESTIMATE, MANUAL INCREASED (>450,000) (NORMAL); PLATELET MORPHOLOGY NORMAL APPEARANCE (NORMAL)
[2019-06-20 20:05] VITALS: BP 100/75
[2019-06-20] MEDS ORDERED: HYDROcod/ACET 5/325 Prepack 4 PO STA (20:32)
[2019-06-20] MEDS ORDERED: SPIRONOLACTONE 25 MG TABLET PO STA (20:32)
[2019-06-20] MEDS ORDERED: ONDANSETRON ODT 4 MG Prepack 2 TL PRN (20:32)
== END 2019-06-20 21:25 | disposition home or self-care (01) ==
LOC: ED 16:24
DX: I10 Essential (primary) hypertension (principal); R18.8 Other ascites; E87.6 Hypokalemia; R16.0 Hepatomegaly, not elsewhere classified; K76.0 Fatty (change of) liver, not elsewhere classified; J90 Pleural effusion, not elsewhere classified; Z91.14 Patient's other noncompliance with medication regimen; Z98.890 Other specified postprocedural states
CPT/HCPCS: 36415; 51798; 74176; 80053; 83690; 83735; 85025; 96372; 99284; A9270; J1170; Q0162

== ENCOUNTER 2019-08-03 15:08 | Inpatient (IN) | payer MEDICAID, MEDICARE ==
--- NOTE | 2019-08-03 15:40 | ED Physician Documentation ---
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 Abd pain is generalized, no focal area of pain. Feels nausea but no vomiting. Incontinent of stool at times, also incontinent of urine at times, which is apparently new for her. Pt repeatedly states "I don't even know what I am talking about," and endorses some confusion. She denies fever/chills, cough or URI sx, chest pain, dyspnea, dysuria, hematemesis or hematochezia/melena. States she is taking all meds as prescribed though she is not entirely sure what they are. Per last note she is on lamictal, keppra, protonix, eliquis, seroquen, hydroxyzine, and spironolactone. She does not appear to be on lactulose.) Review of Systems Constitutional: reports: Myalgias, Fatigue. denies: Fever, Chills Eyes: reports: Reviewed and negative Ears: reports: Reviewed and negative Nose: reports: Reviewed and negative Throat: reports: Reviewed and negative Cardiac: reports: Reviewed and negative Respiratory: reports: Reviewed and negative GI: reports: Abdominal Pain, Abdominal Swelling, Nausea, Diarrhea. denies: Vomiting, Constipation, Hematemesis, Bloody / black stool : reports: Incontinent. denies: Dysuria, Frequency, Hesitancy Skin: reports: Reviewed and negative Musculoskeletal: reports: Neck pain, Back pain, Extremity pain, Joint pain. denies: Extremity swelling, Joint swelling, Pain with weight bearing Neurologic: reports: Generalized weakness, Confused, Altered mental status. denies: Focal weakness, Numbness, Difficulty speaking, Near syncope, Syncope, Seizure, Unresponsive, Headache, Head injury, LOC Psychiatric: reports: Reviewed and negative Endocrine: reports: Reviewed and negative PD PAST MEDICAL HISTORY - Past Medical History Cardiovascular: Hypertension, Deep vein thrombosis, Pulmonary embolism, Other Respiratory: None Endocrine/Autoimmune: None GI: Other : None, Incontinence HEENT: None Psych: Depression, Anxiety, Panic attacks, Post traumatic stress disorder Musculoskeletal: None Derm: None, Other - Past Surgical History Past Surgical History: Yes General: Gastric surgery, Other 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, Hysterectomy, Breast reduction Cardiovascular: Vascular surgery HEENT: Tonsil/Adenoidectomy - Present Medications Home Medications: Ambulatory Orders Medication Instructions Recorded Confirmed Lorazepam [Ativan] 1 mg PO TID 02/09/15 09/30/18 Apixaban [Eliquis] 5 mg PO BID 06/10/16 09/30/18 Prazosin [Minipress] 10 mg PO DAILY 06/10/16 09/30/18 levETIRAcetam [Levetiracetam] 1,000 mg PO BID 06/10/16 09/30/18 Promethazine [Phenergan] 25 mg PO Q6H PRN #30 tab 06/13/16 09/30/18 lisinopriL [Lisinopril] 10 mg PO DAILY 09/30/18 09/30/18 traZODone [Desyrel] 1 each PO QPM 09/30/18 09/30/18 Estradiol [Vagifem] 1 each VG Q48H 10/05/18 10/05/18 Ibuprofen [Motrin] 1 - 2 cap PO Q6HR PRN 10/05/18 10/05/18 Docusate Sodium 100 mg PO DAILY #30 capsule 04/06/19 Hydrocortisone Acetate [Anucort-Hc] 25 mg RC DAILY #5 supp.rect 04/06/19 Lidocaine Ointment 5% [Xylocaine 1 applic TOP QID PRN #1 tube 04/06/19 Ointment 5%] Oxycodone HCl 5 mg PO Q8H PRN #12 tablet 06/20/19 Promethazine [Phenergan] 25 mg PO Q6H PRN #10 tab 06/20/19 Spironolactone 25 mg PO DAILY #20 tablet 06/20/19 - Allergies Allergies/Adverse Reactions: Allergies Allergy/AdvReac Type Severity Reaction Status Date / Time cephalexin monohydrate * Allergy Welts Verified 08/03/19 15:14 [From [employer]] - Social History Does the pt smoke?: No Smoking Status: Never smoker Does the pt drink ETOH?: Yes Does the pt have substance abuse?: No - Immunizations Immunizations are current?: Yes - POLST Patient has POLST: No PD ED PE NORMAL - Vitals Vital signs reviewed: Yes - General General: Alert and oriented X 3 (Chronically ill appearing, alert and oriented but occasional confusion and occasionally slow to respond. ), No acute distress - HEENT HEENT: Atraumatic, PERRL, EOMI, Moist mucous membranes, Pharynx benign - Neck Neck: Supple, no meningeal sign, No JVD, Other (flat neck veins) - Cardiac Cardiac: RRR, No murmur, No gallop, No rub - Respiratory Respiratory: No respiratory distress, Clear bilaterally - Abdomen Abdomen: Normal bowel sounds, Soft, Non distended, Other (hepatomegaly, generalized tenderness but no distension. ) - Rectal Rectal: Other (no ext hemorrhoids or masses, no mikayla blood, no stool in the vault) - Back Back: No CVA TTP - Derm Derm: Other (jaundice) - Extremities Extremities: No deformity, No calf tenderness / cord, Other (2+ lower ext edema, non pitting) - Neuro Neuro: Alert and oriented X 3 Eye Opening: Spontaneous Motor: Obeys Commands Verbal: Oriented (Confused at times) GCS Score: 15 - Psych Psych: Normal mood, Normal affect Results - Vitals Vitals: Vital Signs - 24 hr 08/03/19 08/03/19 08/03/19 15:14 17:06 18:18 Temperature 36.5 C Heart Rate 104 H 74 91 Respiratory 16 15 15 Rate Blood Pressure 110/65 112/74 105/71 O2 Saturation 100 96 100 08/03/19 19:29 Temperature Heart Rate 68 Respiratory 16 Rate Blood Pressure 120/69 O2 Saturation 98 Oxygen O2 Source Room air - Labs Labs: Laboratory Tests 08/03/19 08/03/19 08/03/19 17:55 17:55 17:55 WBC 21.6 H RBC 2.33 L Hgb 7.4 L Hct 22.8 L MCV 97.9 MCH 31.8 H MCHC 32.5 RDW 18.9 H Plt Count 405 MPV 8.9 Neut # (Auto) Not Reportable Lymph # (Auto) Not Reportable [place] # (Auto) Not Reportable Eos # (Auto) Not Reportable Baso # (Auto) Not Reportable Absolute Nucleated RBC Not Reportable Total Counted 100 Band Neuts % (Manual) 2 Abnorm Lymph % (Manual) 0 Nucleated RBC % Not Reportable Neutrophils # (Manual) 17.9 H Lymphocytes # (Manual) 1.7 Monocytes # (Manual) 1.7 H Eosinophils # (Manual) 0.2 Basophils # (Manual) 0.0 Differential Comment MANUAL DIFFERENTIAL Manual Slide Review Indicated WBC Morphology NORMAL APPEARANCE Platelet Estimate NORMAL (130-450,000) Platelet Morphology NORMAL APPEARANCE RBC Morph Micro Appear 2+ TARGET CELLS PT 22.2 H INR 2.0 H Sodium 132 L Potassium 3.9 Chloride 105 Carbon Dioxide 19 L Anion Gap 8.0 BUN 15 Creatinine 1.1 H Estimated GFR (MDRD) 52 L Glucose 119 H Calcium 7.1 L Total Bilirubin 4.2 H AST 79 H ALT 35 Alkaline Phosphatase 189 H Ammonia Total Protein 5.7 L Albumin 1.6 L Globulin 4.1 Albumin/Globulin Ratio 0.4 L Lipase 25 Urine Color Urine Clarity Urine pH Ur Specific [place] Urine Protein Urine Glucose (UA) Urine Ketones Urine Occult Blood Urine Nitrite Urine Bilirubin Urine Urobilinogen Ur Leukocyte Esterase Urine RBC Urine WBC Ur Squamous Epith Cells Urine Bacteria Ur Microscopic Review Urine Culture Comments 08/03/19 08/03/19 17:55 19:20 WBC RBC Hgb Hct MCV MCH MCHC RDW Plt Count MPV Neut # (Auto) Lymph # (Auto) [place] # (Auto) Eos # (Auto) Baso # (Auto) Absolute Nucleated RBC Total Counted Band Neuts % (Manual) Abnorm Lymph % (Manual) Nucleated RBC % Neutrophils # (Manual) Lymphocytes # (Manual) Monocytes # (Manual) Eosinophils # (Manual) Basophils # (Manual) Differential Comment Manual Slide Review WBC Morphology Platelet Estimate Platelet Morphology RBC Morph Micro Appear PT INR Sodium Potassium Chloride Carbon Dioxide Anion Gap BUN Creatinine Estimated GFR (MDRD) Glucose Calcium Total Bilirubin AST ALT Alkaline Phosphatase Ammonia 148.4 H* Total Protein Albumin Globulin Albumin/Globulin Ratio Lipase Urine Color DARK YELLOW Urine Clarity CLEAR Urine pH 5.5 Ur Specific [place] >=1.030 H Urine Protein TRACE Urine Glucose (UA) NEGATIVE Urine Ketones TRACE Urine Occult Blood TRACE-LYSE Urine Nitrite POSITIVE H Urine Bilirubin LARGE H Urine Urobilinogen 2 H Ur Leukocyte Esterase NEGATIVE Urine RBC 0-5 Urine WBC 0-3 Ur Squamous Epith Cells MOD Squamous H Urine Bacteria Many H Ur Microscopic Review INDICATED Urine Culture Comments NOT INDICATED PD MEDICAL DECISION MAKING - ED course Complexity details: reviewed old records, reviewed results, re-evaluated patient, considered differential, d/w patient, d/w PMD ED course: Pt is a 53 yo F with multiple chronic medical conditions who presents w/ mild confusion and an increase in her chronic generalized abdominal pain. There does not seem to be an acute change in her symptoms, but a gradual decline over weeks or months. Pt is not a reliable historian however. On exam, she is alert and oriented with occasional confusion and is occasionally slow to respond. Her ammonia is elevated at 148--pt mildly confused but not profoundly encephalopathic. I started her on lactulose and she had 1 BM in the ER. She has a leukocytosis of unknown origin, perhaps reactive as she has been elevated in the past (17k). Her chest xray is baseline, there are no acute changes on the CTAP, she is afebrile and her vss. She has generalized abd pain but no distension or acute pain to suggest SBP. Urine + for nitrites but otherwise is contaminated so will hold off on antibiotics for now. She has a slow drift in H/H over the last several months but no known active bleed. She had a colon scopy/endoscopy in May. She denies hematemesis/hematochezia/melena. The patient was in the ER for a prolonged period of time due to difficulty w/ IV access and drawing labs. I discussed case w/ both Dr. Morocho and Dr. Henry and discussed possible central line however pt likely to be obs only therefore a central line was not obtained. After numerous attempts by various nurses and myself and Dr. Henry, we finally requested assistance from anesthesia who very kindly came to the ER and put an IV in under ultrasound. Dr. Goodman then accepted the patient to observation for mild encephalopathy to monitor ammonia and trend H/H and leukocytosis. Departure - Departure Disposition: ED Place in Observation Clinical Impression: Abdominal pain Qualifiers: Abdominal location: generalized Qualified Code(s): R10.84 - Generalized abdominal pain Condition: Fair Instructions: Abdominal Pain
[2019-08-03 18:06] LABS: BASOPHILS % (AUTO) 0.4 %; EOSINOPHILS % (AUTO) 0.6 %; HGB - HEMOGLOBIN 7.4 g/dL (12.0-16.0); LYMPHOCYTES % (AUTO) 8.1 %; MEAN CORPUSCULAR HEMOGLOBIN 31.8 pg (27.0-31.0); MEAN CORPUSCULAR HGB CONC 32.5 g/dL (32.0-36.0); MEAN CORPUSCULAR VOLUME 97.9 fL (81.0-99.0); MEAN PLATELET VOLUME 8.9 fL (7.9-10.8); NEUTROPHILS % (AUTO) 81.1 %; PLT - PLATELET COUNT 405 10^3/uL (130-450); RED BLOOD COUNT 2.33 10^6/uL (4.20-5.40); RED CELL DISTRIBUTION WIDTH 18.9 % (12.0-15.0); WHITE BLOOD COUNT 21.6 x10^3/uL (4.8-10.8)
[2019-08-03 18:09] LABS: ABNORMAL LYMPHS % (MANUAL) 0 %
[2019-08-03 18:10] LABS: PT - PROTHROMBIN TIME 22.2 secs (9.9-12.6)
[2019-08-03 18:21] LABS: BAND NEUTROPHILS % (MANUAL) 2 %; EOSINOPHILS # (MANUAL) 0.2 10^3/uL (0-0.7); LYMPHOCYTES # (MANUAL) 1.7 10^3/uL (1.5-3.5); LYMPHOCYTES % (MANUAL) 8 %; MONOCYTES # (MANUAL) 1.7 10^3/uL (0.0-1.0); PLATELET ESTIMATE, MANUAL NORMAL (130-450,000) (NORMAL); PLATELET MORPHOLOGY NORMAL APPEARANCE (NORMAL)
[2019-08-03 18:22] LABS: DIFFERENTIAL COMMENT MANUAL DIFFERENTIAL
[2019-08-03 18:31] LABS: ALBUMIN 1.6 g/dL (3.2-5.5); ALBUMIN/GLOBULIN RATIO 0.4 (1.0-2.2); BILIRUBIN,TOTAL 4.2 mg/dL (0.2-1.0); CALCIUM 7.1 mg/dL (8.5-10.3); CREATININE 1.1 mg/dL (0.4-1.0); TOTAL PROTEIN 5.7 g/dL (6.7-8.2)
[2019-08-03] MEDS ORDERED: LACTULOSE 10 GM /15 ML UDC PO STA (19:00)
[2019-08-03] MEDS ORDERED: ONDANSETRON ODT 4 MG TABLET TL STA (19:08)
[2019-08-03] MEDS ORDERED: IOVERSOL 320 100 ML VIAL IVP ONE (19:11)
[2019-08-03 19:34] LABS: GLUCOSE, URINE (UA) NEGATIVE (NEGATIVE); KETONES,URINE (UA) TRACE mg/dL (NEGATIVE); LEUKOCYTE ESTERASE, URINE NEGATIVE (NEGATIVE); NITRITE,URINE POSITIVE (NEGATIVE); OCCULT BLOOD,URINE TRACE-LYSE (NEGATIVE); PH,URINE 5.5 PH (5.0-7.5); PROTEIN,URINE TRACE mg/dL (NEGATIVE); UROBILINOGEN,URINE 2 E.U./dL (NORMAL)
[2019-08-03 19:35] LABS: CLARITY,URINE CLEAR (CLEAR)
[2019-08-03 19:36] LABS: BILIRUBIN,URINE LARGE (NEGATIVE); ICTOTEST,URINE POSITIVE
[2019-08-03 19:47] LABS: BACTERIA,URINE Many /HPF (None Seen); RBC,URINE 0-5 /HPF (0-5); SQUAMOUS EPITHELIAL CELL,UR MOD Squamous (<= Few)
--- NOTE | 2019-08-03 20:43 | CT Report ---
Reason: abdominal pain Procedure Date: 08/03/2019 Accession Number: [id number] / [id number] Procedure: CT - Abdomen/Pelvis WO CPT Code: Final Report FULL RESULT: EXAM: CT ABDOMEN AND PELVIS (CT KUB) EXAM DATE: 08/03/2019 08:17 PM. CLINICAL HISTORY: Abdominal pain. History of liver failure and gastric bypass. COMPARISONS: ABDOMEN/PELVIS W/O 06/20/2019 6:02 PM. TECHNIQUE: Routine axial helical CT imaging was performed through the abdomen and pelvis without IV contrast. Reconstructions: Coronal and sagittal. In accordance with CT protocol optimization, one or more of the following dose reduction techniques were utilized for this exam: automated exposure control, adjustment of mA and/or KV based on patient size, or use of iterative reconstructive technique. FINDINGS: The small left pleural effusion is not significant changed in size since the prior exam with associated atelectasis. The lung bases are otherwise clear. The visible heart is normal in size. There is unchanged large geographic areas of hypoattenuation within the liver, greatest in the left hepatic lobe, most consistent with fatty infiltration. An underlying mass cannot be excluded. The liver remains enlarged measuring 22.1 cm in the craniocaudal dimension. Postcholecystectomy clips are seen. No biliary dilatation is seen. Multiple calcified granulomas are seen throughout the spleen. There is fatty infiltration of the pancreas. The adrenal glands are within normal limits. No renal calculi or hydronephrosis is seen. Postsurgical changes from a gastric bypass with Vickey-en-Y are again seen. There is a small hiatal hernia. The efferent loop remains dilated and fluid-filled, unchanged. There is no evidence of bowel obstruction. The appendix is not visible. No free intraperitoneal air is seen. Moderate volume ascites is present, slightly increased since the prior exam. There is diffuse mesenteric edema. No mikayla lymphadenopathy is seen. The unenhanced abdominal aorta is normal in course and caliber. The bladder is decompressed. The uterus and ovaries are absent. Multiple Schmorl's nodes are again seen in the thoracolumbar spine. The spinal alignment is maintained. There are no suspicious lytic or blastic lesions. There is diffuse soft tissue edema in the abdominal wall. IMPRESSION: 1. Slight interval increase in the volume of ascites. 2. Unchanged small left pleural effusion. 3. Geographic areas of hepatic steatosis with hepatomegaly, unchanged. 4. No evidence of bowel obstruction. RADIA
--- NOTE | 2019-08-03 20:48 | XRAY Report ---
Reason: chest pain Procedure Date: 08/03/2019 Accession Number: [id number] / [id number] Procedure: XR - Chest 1 View X-Ray CPT Code: 16030 Final Report FULL RESULT: EXAM: CHEST RADIOGRAPHY EXAM DATE: 08/03/2019 08:32 PM. CLINICAL HISTORY: Chest pain. COMPARISON: CHEST 2 VIEW 06/05/2019 5:27 PM RIBS W/PA CHEST LT 07/06/2016 11:49 AM. TECHNIQUE: 1 view. FINDINGS: The mediastinal and cardiac silhouettes are normal. Surgical clips are seen in the upper abdomen. Calcified mediastinal lymph nodes are reidentified and are unchanged compared to the 07/06/2016 chest radiograph. The lungs are free of focal consolidation or there is no pleural effusion or pneumothorax. No acute osseous abnormality is seen. IMPRESSION: No focal consolidation. RADIA
[2019-08-03] MEDS ORDERED: SODIUM CHLORIDE FLUSH 0.9% 10 ML SYRINGE IVP PRN (22:16)
[2019-08-03] MEDS ORDERED: ONDANSETRON 4 MG/2 ML VIAL IVP PRN (22:16)
--- NOTE | 2019-08-03 22:21 | HISTORY & PHYSICAL EXAMINATION ---
Chief Complaint - Chief Complaint Chief Complaint: Abdominal pain History of Present Illness - Admitted From Admitted From:: Home - History Obtained From Records Reviewed: Yes History obtained from: Patient, ER Provider, EMR - History of Present Illness HPI Comment/Other: This is a 53-year-old female with a past medical history significant for liver cirrhosis, prior history of alcoholism, history of DVT, factor V Leiden on Eliquis, epilepsy, PTSD who presents today complaining of chronic abdominal pain. She states her abdominal pain has been present for quite a few months now but it has progressed over the past few days. She states is located over her whole abdomen. She reports she has been feeling nauseous and has had multiple episodes of vomiting all this is also been going on over the past few months. She states she is normally constipated yesterday she had one large bloody bowel movement. She reports occasional blood-tinged emesis. She reports her vomit yesterday was predominantly brown although there may have been occasional black stool. She had an endoscopy and colonoscopy back in May. From what she can recall, she had 2 polyps that were removed. She reports she has a member who has colon cancer and therefore both her and her sister get screened every 5 years. She states she has been told that she has liver cirrhosis. She reports never been told as to why this occurred. She reports drinking alcohol after the age of 38 and there was a brief period of time where she drinking on a daily basis but this was for no more than 5 years. She states she had quit drinking alcohol multiple years ago. 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 Prior review of records state her illustrator set is at [facility]. She reports no prior history of blood transfusion. She has had DVTs in her lower ex tremities in the past. She is on Eliquis for factor V Leiden. She reports she not had any recent seizures. She states she does feel occasionally confused compared to her baseline. It takes her longer to gather her words. She reports no fevers or chills. Denies any chest pain. She states she does feel short of breath at times but attributed to her distended abdomen. She reports never having a paracentesis in the past. She is not taking lactulose to her knowledge. She does report occasional dysuria but no urgency or hematuria. Reports no significant bleeding tendencies. In the emergency department, she is found to be afebrile with temperature of 36.5 C. He was initially tachycardic but this improved to the 70s without any intervention. Her blood pressures been stable in the 110 systolic. She is not tachypneic and saturating well on room air. Labs are significant for a white count of 21.6 with a left shift and 2% bands. Her hemoglobin was 7.4. Platelets are 405. Sodium is 132 and her creatinine is 1.1. Total bilirubin is elevated at 4.2. AST is elevated at 79. Her ammonia is found to be elevated at 148. She did have a urinalysis but unfortunately this was not a clean-catch. She underwent a CT abdomen pelvis which showed moderate ascites but no acute abnormalities. She was given lactulose in the emergency department. Given her mild hepatic encephalopathy and anemia, it was felt that observation was warranted. We did discuss goals of care and she would like to be a full code. 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 She never smoked. He is having alcohol in her 40s and was drinking a daily basis for 5 years. She states she has quit now for over quite a few years. - Substance History Use: Uses substance without health or social issues: NONE - POLST Patient has POLST: No Meds/Allgy - Home Medications Home Medications: Ambulatory Orders Medication Instructions Recorded Confirmed Lorazepam [Ativan] 1 mg PO TID 02/09/15 09/30/18 Apixaban [Eliquis] 5 mg PO BID 06/10/16 09/30/18 Prazosin [Minipress] 10 mg PO DAILY 06/10/16 09/30/18 levETIRAcetam [Levetiracetam] 1,000 mg PO BID 06/10/16 09/30/18 Promethazine [Phenergan] 25 mg PO Q6H PRN #30 tab 06/13/16 09/30/18 lisinopriL [Lisinopril] 10 mg PO DAILY 09/30/18 09/30/18 traZODone [Desyrel] 1 each PO QPM 09/30/18 09/30/18 Estradiol [Vagifem] 1 each VG Q48H 10/05/18 10/05/18 Ibuprofen [Motrin] 1 - 2 cap PO Q6HR PRN 10/05/18 10/05/18 Docusate Sodium 100 mg PO DAILY #30 capsule 04/06/19 Hydrocortisone Acetate [Anucort-Hc] 25 mg RC DAILY #5 supp.rect 04/06/19 Lidocaine Ointment 5% [Xylocaine 1 applic TOP QID PRN #1 tube 04/06/19 Ointment 5%] Oxycodone HCl 5 mg PO Q8H PRN #12 tablet 06/20/19 Promethazine [Phenergan] 25 mg PO Q6H PRN #10 tab 06/20/19 Spironolactone 25 mg PO DAILY #20 tablet 06/20/19 - Allergies Allergies/Adverse Reactions: Allergies Allergy/AdvReac Type Severity Reaction Status Date / Time cephalexin monohydrate * Allergy Welts Verified 08/03/19 15:14 [From Keflex] Review of Systems - Constitutional Constitutional: reports: Fatigue, Malaise. denies: Fever, Chills - Cardiovascular Cariovascular: reports: Edema, Exertional dyspnea. denies: Chest pain - Respiratory Respiratory: reports: SOB at rest, SOB with exertion. denies: Cough - Gastrointestinal Gastrointestinal: reports: Abdominal pain, Constipation, Nausea, Vomiting, Bloating. denies: Diarrhea, Yosvany blood emesis, Coffee grounds emesis - Genitourinary Genitourinary: reports: Dysuria. denies: Frequency, Urgency, Hematuria - Musculoskeletal Musculoskeletal: denies: Muscle pain, Limited range of motion - Integumentary Integumentary: denies: Rash - Neurological Neurological: denies: General weakness, Focal weakness - Hematologic/Lymphatic Hematologic/Lymphatic: denies: Anemia, Bleeding tendencies - All Other Systems All Other Systems: reports: Reviewed and negative Prior Level of Functionality: She is independent with her ADLs. Exam - Vital Signs Vital Signs: Vital Signs x48h Temp Pulse Resp BP Pulse Ox 08/03/19 19:29 68 16 120/69 98 08/03/19 18:18 91 15 105/71 100 08/03/19 17:06 74 15 112/74 96 08/03/19 15:14 36.5 C 104 H 16 110/65 100 - Physical Exam General Appearance: positive: Alert. negative: Severe distress, Anxious, Lethargic Eyes Bilateral: positive: Normal inspection, Other (Scleral icterus noted.) ENT: positive: Dry mucous membranes. negative: No signs of dehydration Neck: positive: Nml inspection Respiratory: positive: No respiratory distress, Breath sounds nml. negative: Wheezes, Rales, Rhonchi Cardiovascular: positive: No murmur, Tachycardia. negative: Bradycardia, Systolic murmur, Diastolic murmur Abdomen: positive: Nml bowel sounds, Tenderness (She has mild diffuse tenderness throughout the abdomen.). negative: Non-tender, No distention (Abdomen is distended.), Guarding, Rebound, Abnml bowel sounds Skin: positive: No rash, Warm, Dry, Pallor, Other (Slightly jaundiced.) Extremities: positive: Full ROM, Pedal edema (2+ pitting edema in left lower extremity, +1 in right lower extremity). negative: No pedal edema Neurologic/Psychiatric: positive: Oriented x3 (She is oriented to self, location, year. She also knows it is July. She does not know the day of the week or the date. She does not have slurred speech but she is slow to respond to questions at times. No focal motor deficits.). negative: Disoriented to person, Disoriented to place, Disoriented to time Conclusion/Plan - Problem List (1) Hepatic encephalopathy Conclusion/Plan: She has mild grade 1 hepatic cephalopathy secondary to her liver cirrhosis. Her ammonia elevated at 150. She is alert and oriented but her speech is slow at times he does appear intermittently confused. It is unclear what has exacerbated this encephalopathy. Her hemoglobin is decreased but is no evidence of significant bleeding at this time. She does appear slightly dehydrated on exam which may be a contributing factor given her nausea and vomiting. White count is elevated but there are no obvious signs of infection at this time. We will start her on lactulose 20 g 3 times daily to titrate to 2-3 bowel movements a day. She will need to be discharged on lactulose given her cirrhosis. Will consider rifaximin if her ammonia does not decrease or hemorrhage does not improve. Trend her ammonia. We will not obtain a CT the head given she has no focal deficits on exam. (2) Anemia Conclusion/Plan: Her hemoglobin is decreased 7.4 and her baseline appears to be 9-10. There appears to be no signs of significant bleeding at this moment. Review of records showed she had an EGD and colonoscopy back in May of the lesion results are available to me. Her MCV is 97.9. She is on Eliquis for history of DVT and factor V Leiden. At this time, we will check her hemoglobin again in the morning. We will obtain a type and screen. Will only transfuse for hemoglobin less than 7. We will check stool for occult blood. Hold off on her resume resuming her Eliquis for the time being until bleed is ruled out. We will check iron studies, ferritin, B12, folate. (3) Abdominal pain Conclusion/Plan: She has chronic abdominal pain which I suspect may be secondary to the ascites or gastritis from her emesis. SBP is on the differential but she does not have a fever and her pain is not very severe. A CT the abdomen pelvis showed no acute abnormalities and a moderate volume of ascites. She reports her pain is chronic in nature although slightly more prominent over more recent times. We will treat her pain with low-dose morphine IV as needed for the time being. Continue her on oral Protonix. Zofran IV as needed for nausea. If her pain persists and her white count rises, will ask radiology or general surgery to evaluate her for a paracentesis. Qualifiers: Abdominal location: generalized Qualified Code(s): R10.84 - Generalized abdominal pain (4) Leukocytosis Conclusion/Plan: Her white count is elevated at 21.6 with a left shift and 2% bands. Review of prior labs show her white count has been elevated in the high teens since May. She has no fever and no obvious signs of infection. Her chest x-ray is clear. CT shows ascites without any acute abnormalities. Urinalysis was not a clean catch. Cultures have been drawn and are pending. At this time, we will hold off on antibiotics unless she spikes a fever or there are obvious signs of infection. We will attempt to obtain a paracentesis to evaluate for SBP. Trend her white count. (5) Acute kidney injury Conclusion/Plan: Creatinine is elevated at 1.1 and her baseline is 0.7. Suspect is likely a prerenal injury as although she appears hypervolemic on exam, she does have dry oral mucosa and has been having nausea and vomiting. We will gently hydrate her with normal saline. Monitor her renal function and urine output. Renal function continues to decline, we will obtain urine electrolytes. She may ultimately benefit from albumin if she does not respond to IV hydration. (6) Liver cirrhosis Conclusion/Plan: This appears secondary to alcohol use. Her abdomen is distended and she does have ascites on imaging. He also has a reported history of esophageal varices although I do not have records to confirm this. Her MELD score is currently 21 although this might be slightly skewed given she is on Eliquis which may falsely elevate her INR. Her T bili is elevated at 4.2 which is higher than past lab values. We will trend her LFTs. Qualifiers: Hepatic cirrhosis type: alcoholic cirrhosis Ascites presence: with ascites Qualified Code(s): K70.31 - Alcoholic cirrhosis of liver with ascites (7) Hyponatremia Conclusion/Plan: She does appear hypervolemic on exam but I would believe she may be intravascularly depleted. Her sodium is decreased at 132. Given her nausea and vomiting, we will start her on gentle hydration with normal saline. We will recheck her sodium and the morning. If it decreases with IV fluids, then we will discontinue the saline and put her on a fluid restriction. (8) Seizure disorder Conclusion/Plan: Stable. We will continue her home Keppra. She is also reportedly on Lamictal although does not appear to be on her medical records. Will resume once her dosing is confirmed. (9) PTSD (post-traumatic stress disorder) Conclusion/Plan: Stable. She is on prazosin at home. We will resume this once her dose is confirmed. (10) History of DVT (deep vein thrombosis) Conclusion/Plan: With a history of DVT in the past and has factor V Leiden. She is on Eliquis at home. We will hold this for the time being given her anemia and possible need for paracentesis. We will resume once hemorrhage is ruled out and we are certain there will be no procedures. - Lab Results Lab results reviewed: Yes Fish Bones: 08/03/19 17:55 08/03/19 17:55 - Diagnostic Imaging Results Diagnostic Imaging Results: positive: Final report reviewed Core Measures - Anticipated LOS I expect patient to be DC'd or transferred within 96 hours.: Yes - Issues Hospital Issues and Management Plan: This is a 53-year-old female who presents with chronic abdominal pain and slight confusion. She is on to have an elevated ammonia with concerns for mild hepatic cephalopathy. She is also anemic without evidence of significant hemorrhage. We will observe her overnight and administer lactulose. Trend her hemoglobin. She may require transfusion. There is significant bleeding, will need to transfer to facility with gastroenterology given her cirrhosis. She does have a white count we will hold off on IV antibiotics for the meantime given there is no evidence of infection. - DVT/VTE - Prophylaxis VTE/DVT Device ordered at admit?: No Not Ordered - Medical Reason: Contraindicated VTE/DVT Prophylaxis med ordered at admit?: No Not Ordered - Medical Reason: Not indicated
[2019-08-03] MEDS ORDERED: LACTULOSE 10 GM /15 ML UDC PO SCH (23:00)
[2019-08-03] MEDS ORDERED: SODIUM CHLORIDE 0.9% 1,000 ML IV SCH (23:00)
[2019-08-04] MEDS: levETIRAcetam 250 MG TABLET PO SCH ×3 (00:59→20:40)
[2019-08-04] MEDS: oxyCODONE 5 MG TABLET PO PRN ×3 (02:29→14:44)
[2019-08-04] MEDS ORDERED: ONDANSETRON ODT 4 MG TABLET TL PRN ×2 (04:20→04:34)
[2019-08-04 05:03] LABS: BASOPHILS % (AUTO) 0.5 %; HGB - HEMOGLOBIN 7.9 g/dL (12.0-16.0); MEAN CORPUSCULAR HEMOGLOBIN 30.7 pg (27.0-31.0); MEAN CORPUSCULAR HGB CONC 31.2 g/dL (32.0-36.0); MEAN CORPUSCULAR VOLUME 98.4 fL (81.0-99.0); MEAN PLATELET VOLUME 8.9 fL (7.9-10.8); MONOCYTES % (AUTO) 10.2 %; NEUTROPHILS % (AUTO) 75.4 %; PLT - PLATELET COUNT 458 10^3/uL (130-450); RED BLOOD COUNT 2.57 10^6/uL (4.20-5.40); RED CELL DISTRIBUTION WIDTH 18.7 % (12.0-15.0); WHITE BLOOD COUNT 22.2 x10^3/uL (4.8-10.8)
[2019-08-04 05:06] LABS: INR 1.7 (0.8-1.2); PT - PROTHROMBIN TIME 18.8 secs (9.9-12.6)
[2019-08-04 05:15] LABS: ABNORMAL LYMPHS % (MANUAL) 0 %
[2019-08-04 05:20] LABS: ALBUMIN 1.7 g/dL (3.2-5.5); BILIRUBIN,DIRECT 2.2 mg/dL (0.1-0.5); BILIRUBIN,TOTAL 4.1 mg/dL (0.2-1.0); CALCIUM 7.5 mg/dL (8.5-10.3); MAGNESIUM 2.1 mg/dL (1.7-2.8); PHOSPHORUS 3.4 mg/dL (2.5-4.6)
[2019-08-04 05:38] LABS: FERRITIN 42.1 ng/mL (11.0-306.8)
[2019-08-04 05:39] LABS: BAND NEUTROPHILS % (MANUAL) 10 %; DIFFERENTIAL COMMENT MANUAL DIFFERENTIAL; LYMPHOCYTES # (MANUAL) 1.1 10^3/uL (1.5-3.5); LYMPHOCYTES % (MANUAL) 5 %; METAMYELOCYTES % (MANUAL) 1 %; MONOCYTES # (MANUAL) 0.7 10^3/uL (0.0-1.0); PLATELET ESTIMATE, MANUAL INCREASED (>450,000) (NORMAL); RBC MORPHOLOGY (MULTIPLE) 1+ HYPOCHROMASIA (NORMAL)
[2019-08-04 05:42] LABS: FOLATE 17.23 ng/mL (5.90 - >24.8)
[2019-08-04] MEDS: PANTOPRAZOLE 40 MG TABLET PO SCH (06:18)
[2019-08-04] MEDS ORDERED: PROMETHAZINE 25 MG TABLET PO PRN (06:39)
[2019-08-04] MEDS ORDERED: LACTULOSE 10 GM /15 ML UDC PO SCH (06:43)
[2019-08-04] MEDS: SODIUM CHLORIDE FLUSH 0.9% 10 ML SYRINGE IVP SCH ×3 (09:11→15:52)
[2019-08-04] MEDS: LACTULOSE 10 GM /15 ML UDC PO SCH ×2 (09:12→15:53)
--- NOTE | 2019-08-04 09:44 | CONSULTATION NOTE ---
Consultation Report: Call to [phone] for IV placement after multiple failed attempts. Need for IVFs and ABX. Pt cooperative. L UE cleaned with chlorhexadine and US used to place 20ga 1.88" IV attempt x1 @L distal basilic v. Easily aspirates and flushes with cap. Secured, tegaderm. Pt tolerated procedure without complication or complaint.
--- NOTE | 2019-08-04 12:23 | PHARMACY PROGRESS NOTE ---
- Best Possible Medication History Admit Date and Time: 08/03/19 8255 Processed by: Pharmacy Medication History completed: Yes Patient Interview: Pt unable to participate Secondary Source(s): Physician records, Pharmacy records, Insurance records As the person ultimately responsible for medication therapy, providers are able to order a medication from an existing home medication list in [facility] via the "Reconcile Routine" prior to Confirmation of that medication by support engineer. Such practice is discouraged except when the physician, in their clinical judgment, deems that a medical need exists for a medication without regard to previous use.
--- NOTE | 2019-08-04 14:10 | PROVIDER PROGRESS NOTE ---
Subjective - Prog Note Date Prog Note Date: 08/04/19 Prog Note Time: 14:28 - Subjective Pt reports feeling: No change (Patient has of any complaints of persistent nausea, diarrhea which has not occurred yet today, abdominal discomfort, But not significant abdominal pain.She would also like to not take the lactulose unless it is available as a popsicle) Current Medications - Current Medications Current Medications: Active Medications Sodium Chloride (Normal Saline 0.9%) 1,000 mls @ 125 mls/hr IV .Q8H [facility] Last Admin: 08/04/19 14:27 Dose: 125 mls/hr Ceftriaxone Sodium 1 gm/ (Sodium Chloride) 100 mls @ 200 mls/hr IV DAILY [facility] Last Admin: 08/04/19 14:27 Dose: 200 mls/hr Lactulose (Enulose) 20 gm PO TID@0000,0800,1600 [facility] Last Admin: 08/04/19 09:12 Dose: 20 gm Levetiracetam (Keppra) 1,000 mg PO BID [facility] Last Admin: 08/04/19 09:13 Dose: 1,000 mg Morphine Sulfate (Morphine (Carpuject)) 1 mg IVP Q4HR PRN PRN Reason: PAIN Ondansetron HCl (Zofran Inj) 4 mg IVP Q6HR PRN PRN Reason: Nausea / Vomiting Ondansetron HCl (Zofran Odt) 4 mg TL Q4HR PRN PRN Reason: Nausea / Vomiting Oxycodone HCl (Roxicodone) 5 mg PO Q4HR PRN PRN Reason: PAIN Last Admin: 08/04/19 09:13 Dose: 5 mg Pantoprazole Sodium (Protonix) 40 mg PO QDAC [facility] Last Admin: 08/04/19 06:18 Dose: 40 mg Promethazine HCl (Phenergan) 25 mg PO Q6HR PRN PRN Reason: Nausea / Vomiting Last Admin: 08/04/19 13:36 Dose: 25 mg Sodium Chloride (Normal Saline Flush 0.9%) 10 ml IVP PRN PRN PRN Reason: NEEDED PER PROVIDER ORDERS Sodium Chloride (Normal Saline Flush 0.9%) 10 ml IVP 0100,0900,1700 [facility] Last Admin: 08/04/19 09:15 Dose: 10 ml Furosemide 40 mg PO DAILY 08/04/19 Hydrocortisone [Procto-Med Hc] 1 applic RC QID PRN 08/04/19 Omeprazole 40 mg PO DAILY 08/04/19 Ondansetron [Ondansetron Odt] 4 mg PO AC 08/04/19 QUEtiapine [SEROquel] 25 mg PO QPM 08/04/19 Spironolactone 100 mg PO DAILY 08/04/19 lamoTRIgine [LaMICtal] 75 mg PO DAILY 08/04/19 Objective - Vital Signs/Intake & Output Reviewed Vital Signs: Yes Vital Signs: Vital Signs x48h Temp Pulse Resp BP Pulse Ox 08/04/19 13:00 36.4 C L 81 16 101/57 L 97 08/04/19 10:59 92 93/68 08/04/19 07:40 36.8 C 95 16 96/58 L 100 Intake & Output: Intake & Output 08/01/19 08/02/19 08/03/19 08/04/19 23:59 23:59 23:59 23:59 Intake Total 80 Output Total 50 Balance 30 - Objective General Appearance: positive: No acute distress Eyes Bilateral: positive: Normal inspection ENT: positive: ENT inspection nml Neck: positive: Nml inspection, Thyroid nml, No JVD Respiratory: positive: Chest non-tender, No respiratory distress, Breath sounds nml Cardiovascular: positive: Regular rate & rhythm, No murmur, No gallop Abdomen: positive: No organomegaly, Nml bowel sounds, Tenderness (Mild to moderate generalized nonfocal tenderness), Other (Mild abdominal). negative: Non-tender Skin: positive: Color nml, No rash, Warm Extremities: positive: Non-tender, No pedal edema Neurologic/Psychiatric: positive: Oriented x3, CN's nml (2-12) - Lab Results Fish Bones: 08/04/19 04:45 08/04/19 04:45 Other Labs: Lab Results x24hrs 08/04/19 08/04/19 08/04/19 Range/Units 05:45 04:45 04:45 WBC (4.8-10.8) x10^3/uL RBC (4.20-5.40) 10^6/uL Hgb (12.0-16.0) g/dL Hct (37.0-47.0) % MCV (81.0-99.0) fL MCH (27.0-31.0) pg MCHC (32.0-36.0) g/dL RDW (12.0-15.0) % Plt Count (130-450) 10^3/uL MPV (7.9-10.8) fL Neut # (Auto) Lymph # (Auto) [place] # (Auto) Eos # (Auto) Baso # (Auto) Absolute Nucleated RBC Total Counted Band Neuts % (Manual) (0 - 10) % Abnorm Lymph % (Manual) % Metamyelocytes % ( - 0) % Nucleated RBC % Neutrophils # (Manual) (1.5-6.6) 10^3/uL Lymphocytes # (Manual) (1.5-3.5) 10^3/uL Monocytes # (Manual) (0.0-1.0) 10^3/uL Eosinophils # (Manual) (0-0.7) 10^3/uL Basophils # (Manual) (0-0.1) 10^3/uL Differential Comment Manual Slide Review WBC Morphology (NORMAL) Platelet Estimate (NORMAL) Platelet Morphology (NORMAL) RBC Morph Micro Appear (NORMAL) PT 18.8 H (9.9-12.6) secs INR 1.7 H (0.8-1.2) Sodium (135-145) mmol/L Potassium (3.5-5.0) mmol/L Chloride (101-111) mmol/L Carbon Dioxide (21-32) mmol/L Anion Gap (6-13) BUN (6-20) mg/dL Creatinine (0.4-1.0) mg/dL Estimated GFR (MDRD) (>89) Glucose (70-100) mg/dL Calcium (8.5-10.3) mg/dL Phosphorus (2.5-4.6) mg/dL Magnesium (1.7-2.8) mg/dL Iron (28-170) ug/dL TIBC (250-450) ug/dL % Saturation (20-50) % Transferrin (192-382) mg/dL Ferritin 42.1 (11.0-306.8) ng/mL Total Bilirubin (0.2-1.0) mg/dL Direct Bilirubin (0.1-0.5) mg/dL AST (10-42) IU/L ALT (10-60) IU/L Alkaline Phosphatase (42-121) IU/L Ammonia 78.8 H (7-35) umol/L Total Protein (6.7-8.2) g/dL Albumin (3.2-5.5) g/dL Globulin (2.1-4.2) g/dL Albumin/Globulin Ratio (1.0-2.2) Lipase (22-51) U/L Vitamin B12 1119 H (180-914) pg/mL Folate 17.23 (5.90 - >24.8) ng/mL Urine Color Urine Clarity (CLEAR) Urine pH (5.0-7.5) PH Ur Specific [place] (1.002-1.030) Urine Protein (NEGATIVE) mg/dL Urine Glucose (UA) (NEGATIVE) mg/dL Urine Ketones (NEGATIVE) mg/dL Urine Occult Blood (NEGATIVE) Urine Nitrite (NEGATIVE) Urine Bilirubin (NEGATIVE) Urine Urobilinogen (NORMAL) E.U./dL Ur Leukocyte Esterase (NEGATIVE) Urine RBC (0-5) /HPF Urine WBC (0-5) /HPF Ur Squamous Epith Cells (<= Few) Urine Bacteria (None Seen) /HPF Ur Microscopic Review Urine Culture Comments Blood Type Antibody Screen 08/04/19 08/04/19 08/04/19 Range/Units 04:45 04:45 04:45 WBC 22.2 H (4.8-10.8) x10^3/uL RBC 2.57 L (4.20-5.40) 10^6/uL Hgb 7.9 L (12.0-16.0) g/dL Hct 25.3 L (37.0-47.0) % MCV 98.4 (81.0-99.0) fL MCH 30.7 (27.0-31.0) pg MCHC 31.2 L (32.0-36.0) g/dL RDW 18.7 H (12.0-15.0) % Plt Count 458 H (130-450) 10^3/uL MPV 8.9 (7.9-10.8) fL Neut # (Auto) Not Reportable Lymph # (Auto) Not Reportable [place] # (Auto) Not Reportable Eos # (Auto) Not Reportable Baso # (Auto) Not Reportable Absolute Nucleated RBC Not Reportable Total Counted 100 Band Neuts % (Manual) 10 (0 - 10) % Abnorm Lymph % (Manual) 0 % Metamyelocytes % 1 H ( - 0) % Nucleated RBC % Not Reportable Neutrophils # (Manual) 20.2 H (1.5-6.6) 10^3/uL Lymphocytes # (Manual) 1.1 L (1.5-3.5) 10^3/uL Monocytes # (Manual) 0.7 (0.0-1.0) 10^3/uL Eosinophils # (Manual) 0.0 (0-0.7) 10^3/uL Basophils # (Manual) 0.0 (0-0.1) 10^3/uL Differential Comment MANUAL DIFFERENTIAL Manual Slide Review WBC Morphology (NORMAL) Platelet Estimate INCREASED (>450,000) (NORMAL) Platelet Morphology (NORMAL) RBC Morph Micro Appear 1+ HYPOCHROMASIA (NORMAL) PT (9.9-12.6) secs INR (0.8-1.2) Sodium 133 L (135-145) mmol/L Potassium 3.8 (3.5-5.0) mmol/L Chloride 102 (101-111) mmol/L Carbon Dioxide 22 (21-32) mmol/L Anion Gap 9.0 (6-13) BUN 14 (6-20) mg/dL Creatinine 1.0 (0.4-1.0) mg/dL Estimated GFR (MDRD) 58 L (>89) Glucose 125 H (70-100) mg/dL Calcium 7.5 L (8.5-10.3) mg/dL Phosphorus 3.4 (2.5-4.6) mg/dL Magnesium 2.1 (1.7-2.8) mg/dL Iron 37 (28-170) ug/dL TIBC 153 L (250-450) ug/dL % Saturation 24 (20-50) % Transferrin 109 L (192-382) mg/dL Ferritin (11.0-306.8) ng/mL Total Bilirubin 4.1 H (0.2-1.0) mg/dL Direct Bilirubin 2.2 H (0.1-0.5) mg/dL AST 80 H (10-42) IU/L ALT 33 (10-60) IU/L Alkaline Phosphatase 235 H (42-121) IU/L Ammonia (7-35) umol/L Total Protein 6.0 L (6.7-8.2) g/dL Albumin 1.7 L (3.2-5.5) g/dL Globulin 4.3 H (2.1-4.2) g/dL Albumin/Globulin Ratio (1.0-2.2) Lipase (22-51) U/L Vitamin B12 (180-914) pg/mL Folate (5.90 - >24.8) ng/mL Urine Color Urine Clarity (CLEAR) Urine pH (5.0-7.5) PH Ur Specific [place] (1.002-1.030) Urine Protein (NEGATIVE) mg/dL Urine Glucose (UA) (NEGATIVE) mg/dL Urine Ketones (NEGATIVE) mg/dL Urine Occult Blood (NEGATIVE) Urine Nitrite (NEGATIVE) Urine Bilirubin (NEGATIVE) Urine Urobilinogen (NORMAL) E.U./dL Ur Leukocyte Esterase (NEGATIVE) Urine RBC (0-5) /HPF Urine WBC (0-5) /HPF Ur Squamous Epith Cells (<= Few) Urine Bacteria (None Seen) /HPF Ur Microscopic Review Urine Culture Comments Blood Type A POSITIVE Antibody Screen NEGATIVE 08/03/19 08/03/19 08/03/19 Range/Units 19:20 17:55 17:55 WBC (4.8-10.8) x10^3/uL RBC (4.20-5.40) 10^6/uL Hgb (12.0-16.0) g/dL Hct (37.0-47.0) % MCV (81.0-99.0) fL MCH (27.0-31.0) pg MCHC (32.0-36.0) g/dL RDW (12.0-15.0) % Plt Count (130-450) 10^3/uL MPV (7.9-10.8) fL Neut # (Auto) Lymph # (Auto) [place] # (Auto) Eos # (Auto) Baso # (Auto) Absolute Nucleated RBC Total Counted Band Neuts % (Manual) (0 - 10) % Abnorm Lymph % (Manual) % Metamyelocytes % ( - 0) % Nucleated RBC % Neutrophils # (Manual) (1.5-6.6) 10^3/uL Lymphocytes # (Manual) (1.5-3.5) 10^3/uL Monocytes # (Manual) (0.0-1.0) 10^3/uL Eosinophils # (Manual) (0-0.7) 10^3/uL Basophils # (Manual) (0-0.1) 10^3/uL Differential Comment Manual Slide Review WBC Morphology (NORMAL) Platelet Estimate (NORMAL) Platelet Morphology (NORMAL) RBC Morph Micro Appear (NORMAL) PT (9.9-12.6) secs INR (0.8-1.2) Sodium 132 L (135-145) mmol/L Potassium 3.9 (3.5-5.0) mmol/L Chloride 105 (101-111) mmol/L Carbon Dioxide 19 L (21-32) mmol/L Anion Gap 8.0 (6-13) BUN 15 (6-20) mg/dL Creatinine 1.1 H (0.4-1.0) mg/dL Estimated GFR (MDRD) 52 L (>89) Glucose 119 H (70-100) mg/dL Calcium 7.1 L (8.5-10.3) mg/dL Phosphorus (2.5-4.6) mg/dL Magnesium (1.7-2.8) mg/dL Iron (28-170) ug/dL TIBC (250-450) ug/dL % Saturation (20-50) % Transferrin (192-382) mg/dL Ferritin (11.0-306.8) ng/mL Total Bilirubin 4.2 H (0.2-1.0) mg/dL Direct Bilirubin (0.1-0.5) mg/dL AST 79 H (10-42) IU/L ALT 35 (10-60) IU/L Alkaline Phosphatase 189 H (42-121) IU/L Ammonia 148.4 H* (7-35) umol/L Total Protein 5.7 L (6.7-8.2) g/dL Albumin 1.6 L (3.2-5.5) g/dL Globulin 4.1 (2.1-4.2) g/dL Albumin/Globulin Ratio 0.4 L (1.0-2.2) Lipase 25 (22-51) U/L Vitamin B12 (180-914) pg/mL Folate (5.90 - >24.8) ng/mL Urine Color DARK YELLOW Urine Clarity CLEAR (CLEAR) Urine pH 5.5 (5.0-7.5) PH Ur Specific [place] >=1.030 H (1.002-1.030) Urine Protein TRACE (NEGATIVE) mg/dL Urine Glucose (UA) NEGATIVE (NEGATIVE) mg/dL Urine Ketones TRACE (NEGATIVE) mg/dL Urine Occult Blood TRACE-LYSE (NEGATIVE) Urine Nitrite POSITIVE H (NEGATIVE) Urine Bilirubin LARGE H (NEGATIVE) Urine Urobilinogen 2 H (NORMAL) E.U./dL Ur Leukocyte Esterase NEGATIVE (NEGATIVE) Urine RBC 0-5 (0-5) /HPF Urine WBC 0-3 (0-5) /HPF Ur Squamous Epith Cells MOD Squamous H (<= Few) Urine Bacteria Many H (None Seen) /HPF Ur Microscopic Review INDICATED Urine Culture Comments NOT INDICATED Blood Type Antibody Screen 08/03/19 08/03/19 Range/Units 17:55 17:55 WBC 21.6 H (4.8-10.8) x10^3/uL RBC 2.33 L (4.20-5.40) 10^6/uL Hgb 7.4 L (12.0-16.0) g/dL Hct 22.8 L (37.0-47.0) % MCV 97.9 (81.0-99.0) fL MCH 31.8 H (27.0-31.0) pg MCHC 32.5 (32.0-36.0) g/dL RDW 18.9 H (12.0-15.0) % Plt Count 405 (130-450) 10^3/uL MPV 8.9 (7.9-10.8) fL Neut # (Auto) Not Reportable Lymph # (Auto) Not Reportable [place] # (Auto) Not Reportable Eos # (Auto) Not Reportable Baso # (Auto) Not Reportable Absolute Nucleated RBC Not Reportable Total Counted 100 Band Neuts % (Manual) 2 (0 - 10) % Abnorm Lymph % (Manual) 0 % Metamyelocytes % ( - 0) % Nucleated RBC % Not Reportable Neutrophils # (Manual) 17.9 H (1.5-6.6) 10^3/uL Lymphocytes # (Manual) 1.7 (1.5-3.5) 10^3/uL Monocytes # (Manual) 1.7 H (0.0-1.0) 10^3/uL Eosinophils # (Manual) 0.2 (0-0.7) 10^3/uL Basophils # (Manual) 0.0 (0-0.1) 10^3/uL Differential Comment MANUAL DIFFERENTIAL Manual Slide Review Indicated WBC Morphology NORMAL APPEARANCE (NORMAL) Platelet Estimate NORMAL (130-450,000) (NORMAL) Platelet Morphology NORMAL APPEARANCE (NORMAL) RBC Morph Micro Appear 2+ TARGET CELLS (NORMAL) PT 22.2 H (9.9-12.6) secs INR 2.0 H (0.8-1.2) Sodium (135-145) mmol/L Potassium (3.5-5.0) mmol/L Chloride (101-111) mmol/L Carbon Dioxide (21-32) mmol/L Anion Gap (6-13) BUN (6-20) mg/dL Creatinine (0.4-1.0) mg/dL Estimated GFR (MDRD) (>89) Glucose (70-100) mg/dL Calcium (8.5-10.3) mg/dL Phosphorus (2.5-4.6) mg/dL Magnesium (1.7-2.8) mg/dL Iron (28-170) ug/dL TIBC (250-450) ug/dL % Saturation (20-50) % Transferrin (192-382) mg/dL Ferritin (11.0-306.8) ng/mL Total Bilirubin (0.2-1.0) mg/dL Direct Bilirubin (0.1-0.5) mg/dL AST (10-42) IU/L ALT (10-60) IU/L Alkaline Phosphatase (42-121) IU/L Ammonia (7-35) umol/L Total Protein (6.7-8.2) g/dL Albumin (3.2-5.5) g/dL Globulin (2.1-4.2) g/dL Albumin/Globulin Ratio (1.0-2.2) Lipase (22-51) U/L Vitamin B12 (180-914) pg/mL Folate (5.90 - >24.8) ng/mL Urine Color Urine Clarity (CLEAR) Urine pH (5.0-7.5) PH Ur Specific [place] (1.002-1.030) Urine Protein (NEGATIVE) mg/dL Urine Glucose (UA) (NEGATIVE) mg/dL Urine Ketones (NEGATIVE) mg/dL Urine Occult Blood (NEGATIVE) Urine Nitrite (NEGATIVE) Urine Bilirubin (NEGATIVE) Urine Urobilinogen (NORMAL) E.U./dL Ur Leukocyte Esterase (NEGATIVE) Urine RBC (0-5) /HPF Urine WBC (0-5) /HPF Ur Squamous Epith Cells (<= Few) Urine Bacteria (None Seen) /HPF Ur Microscopic Review Urine Culture Comments Blood Type Antibody Screen - Diagnostic Imaging Diagnostic Imaging Results: positive: Final report reviewed Assessment/Plan - Problem List (1) E. coli UTI Impression: Urinalysis with culture positive for E. coli UTI. I suspect this is a major generator of her symptoms. Started Rocephin today, continue to follow clinical course, white blood cell count, fever trend, and possibly transition to oral antibiotics tomorrow if improving. (2) Hepatic encephalopathy Impression: Patient has undefined liver disease And it is unclear what her baseline ammonia level is, but labs show improvement in ammonia level and patient is also clinically improved with clarity and alert and oriented x3. We will continue lactulose as much as patient will tolerate, if patient unable to tolerate p.o. could consider lactulose enema. (3) Abdominal pain Impression: Patient has liver disease of unclear etiology, possibly due to [place]. She has persistent nausea and vomiting at baseline, and this has been going on for several months. At this point in time, her abdominal exam is relatively benign, she is afebrile, and I have a low level of suspicion for spontaneous bacterial peritonitis. I do think this should remain on the differential, however given her low blood pressure, anemia, and recent use of anticoagulation for DVT, I would like to avoid any unnecessary procedures so we will avoid a paracentesis for now. She will be on Rocephin due to the UTI, and this would likely cover SBP anyway. We will follow clinically and go from there. Qualifiers: Abdominal location: generalized Qualified Code(s): R10.84 - Generalized abdominal pain (4) Hyponatremia Impression: Improved at 133, is moderate, And asymptomatic, continue to monitor. (5) Liver cirrhosis Impression: Unclear etiology, though could be related to [place] Based on abdominal CT. Patient will need outpatient follow-up with GI, but at this point has no acute needs with regards to liver failure with the exception of treating the presenting hepatic encephalopathy. Qualifiers: Hepatic cirrhosis type: alcoholic cirrhosis Ascites presence: with ascites Qualified Code(s): K70.31 - Alcoholic cirrhosis of liver with ascites (6) Nausea & vomiting Impression: Improving, may be related to chronic liver disease in the setting of UTI. Advance diet, continue to monitor. Qualifiers: Vomiting type: unspecified Vomiting Intractability: intractable Qualified Code(s): R11.2 - Nausea with vomiting, unspecified (7) Anemia Impression: Baseline level of hemoglobin and hematocrit is unknown, patient does have history of GI bleed and guaiac test is positive. However, she does not show any signs of hemodynamic compromise, and she has been typed and screened upon admission in the ER. For now, will repeat labs in the morning and monitor H&H every 24 hours unless there are any other clinical changes necessitating more frequent evaluation. As long as H&H remained stable, will avoid transfusion, otherwise consider transfusing if symptomatic or hemoglobin below 7. Qualifiers: Anemia type: unspecified type Qualified Code(s): D64.9 - Anemia, unspec ified (8) History of DVT (deep vein thrombosis) Impression: Due to anemia, guaiac positive, hold off on anticoagulation, use SCDs for DVT prophylaxis, reevaluate in the morning with updated hemoglobin hematocrit levels.
[2019-08-04] MEDS: cefTRIAXone 1 GM in SODIUM CHLORIDE 0.9% MINIBAG 100 ML IV SCH (14:27)
[2019-08-04] MEDS: SODIUM CHLORIDE 0.9% 1,000 ML IV SCH ×2 (14:27→20:03)
--- NOTE | 2019-08-04 18:52 | CONSULTATION NOTE ---
Consultation Report: Call for IV after pt unintentionally pulled catheter. Hx of difficult starts. US used to place 20ga 1.88" @RAC. Aspirates and flushes well with cap. Secured. Tegaderm. Pt tolerated procedure without complication or complaint.
[2019-08-04] MEDS: MORPHINE 2 MG/ML CARPUJECT IVP PRN (18:56)
[2019-08-05] MEDS: LACTULOSE 10 GM /15 ML UDC PO SCH ×2 (00:02→10:05)
[2019-08-05] MEDS: SODIUM CHLORIDE FLUSH 0.9% 10 ML SYRINGE IVP SCH ×2 (00:03→10:05)
[2019-08-05] MEDS: SODIUM CHLORIDE 0.9% 1,000 ML IV SCH ×2 (04:25→12:56)
[2019-08-05] MEDS: MORPHINE 2 MG/ML CARPUJECT IVP PRN (05:18)
[2019-08-05] MEDS: PANTOPRAZOLE 40 MG TABLET PO SCH (06:27)
[2019-08-05] MEDS: oxyCODONE 5 MG TABLET PO PRN (06:28)
[2019-08-05] MEDS ORDERED: cefTRIAXone 1 GM in SODIUM CHLORIDE 0.9% MINIBAG 100 ML IV SCH (09:00)
[2019-08-05] MEDS: cefTRIAXone 1 GM in SODIUM CHLORIDE 0.9% MINIBAG 100 ML IV SCH (10:05)
[2019-08-05] MEDS: levETIRAcetam 250 MG TABLET PO SCH (10:06)
[2019-08-05] MEDS ORDERED: CIPROFLOXACIN 250 MG TABLET PO SCH (12:00)
--- NOTE | 2019-08-05 12:05 | Discharge Plan ---
Discharge Plan Problem Reviewed?: Yes Disposition: Home Health Service Condition: Fair Prescriptions: Ciprofloxacin [Cipro] 500 mg PO BID 9 Days tablet Diet: Regular Activity Restrictions: Activity as Tolerated Shower Restrictions: No Driving Restrictions: Yes Assistance Devices: Walker Instruction Topics: Abdominal Pain, Liver Probs Signs Sx Ch, UTI Follow-Up Care: Outpatient Rehab - PT, Home Health - RN No Smoking: If you smoke, Please STOP! Call for help.
[2019-08-05 14:12] VITALS: BP 103/65
--- NOTE | 2019-08-05 15:19 | DISCHARGE SUMMARY ---
Discharge Summary Admit Date: 08/03/19 Discharge Date: 08/05/19 Discharging Provider: Nam Moore MD Primary Care Provider: Dr Bentley Code Status: Attempt Resuscitation Condition at Discharge: Fair Discharge Disposition: Home Health Service - DIAGNOSES Admission Diagnoses: Nausea, vomiting Hepatic encephalopathy Discharge Diagnoses with Status of Each Condition: Nausea, vomitingchronic, slightly improved Hepatic encephalopathyimproved - HPI History of Present Illness: This is a 53-year-old female with a past medical history significant for liver cirrhosis, prior history of alcoholism, history of DVT, factor V Leiden on Eliquis, epilepsy, PTSD who presents today complaining of chronic abdominal pain. She states her abdominal pain has been present for quite a few months now but it has progressed over the past few days. She states is located over her whole abdomen. She reports she has been feeling nauseous and has had multiple episodes of vomiting all this is also been going on over the past few months. She states she is normally constipated yesterday she had one large bloody bowel movement. She reports occasional blood-tinged emesis. She reports her vomit yesterday was predominantly brown although there may have been occasional black stool. She had an endoscopy and colonoscopy back in May. From what she can recall, she had 2 polyps that were removed. She reports she has a member who has colon cancer and therefore both her and her sister get screened every 5 years. She states she has been told that she has liver cirrhosis. She reports never been told as to why this occurred. She reports drinking alcohol after the age of 38 and there was a brief period of time where she drinking on a daily basis but this was for no more than 5 years. She states she had quit drinking alcohol multiple years ago. 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 Prior review of records state her [employer] [facility] is at [facility]. She reports no prior history of blood transfusion. She has had DVTs in her lower extremities in the past. She is on Eliquis for factor V Leiden. She reports she not had any recent seizures. She states she does feel occasionally confused compared to her baseline. It takes her longer to gather her words. She reports no fevers or chills. Denies any chest pain. She states she does feel short of breath at times but attributed to her distended abdomen. She reports never having a paracentesis in the past. She is not taking lactulose to her knowledge. She does report occasional dysuria but no urgency or hematuria. Reports no significant bleeding tendencies. In the emergency department, she is found to be afebrile with temperature of 36.5 C. He was initially tachycardic but this improved to the 70s without any intervention. Her blood pressures been stable in the 110 systolic. She is not tachypneic and saturating well on room air. Labs are significant for a white count of 21.6 with a left shift and 2% bands. Her hemoglobin was 7.4. Platelets are 405. Sodium is 132 and her creatinine is 1.1. Total bilirubin is elevated at 4.2. AST is elevated at 79. Her ammonia is found to be elevated at 148. She did have a urinalysis but unfortunately this was not a clean-catch. She underwent a CT abdomen pelvis which showed moderate ascites but no acute abnormalities. She was given lactulose in the emergency department. Given her mild hepatic encephalopathy and anemia, it was felt that observation was warranted. We did discuss goals of care and she would like to be a full code. - HOSPITAL COURSE Hospital Course: After admission, patient had an improvement in her lactulose level down to 74. Her confusion improved. Her nausea and vomiting while chronic, did also somewhat improved. She was educated extensively on her liver disease and the importance of following up with this.Her urine also was positive for nitrites, and she was presumptively treated with ciprofloxacin. She had a very low level of suspicion for spontaneous bacterial peritonitis given that she was afebrile and had minimal ascites on exam and imaging, however it was felt that given her clinical stable state, her Cipro would also cover spontaneous bacterial peritonitis in the unlikely event that this was a diagnosis. Because of lack of diagnostic imaging services a paracentesis was not possible. This was all reviewed with the patient and in light of her feeling fairly close to her baseline, and no concerning objective findings, patient was deemed to be medically safe for discharge and was referred back to her PCP for follow-up. She was also prescribed home health. - ALLERGIES Allergies/Adverse Reactions: Allergies Allergy/AdvReac Type Severity Reaction Status Date / Time cephalexin monohydrate * Allergy Welts Verified 08/03/19 15:14 [From [facility]] - MEDICATIONS Home Medications: Ambulatory Orders Medication Instructions Recorded Confirmed Furosemide 40 mg PO DAILY 08/04/19 08/04/19 Hydrocortisone [Procto-Med Hc] 1 applic RC QID PRN 08/04/19 08/04/19 Omeprazole 40 mg PO DAILY 08/04/19 08/04/19 Ondansetron [Ondansetron Odt] 4 mg PO AC 08/04/19 08/04/19 QUEtiapine [SEROquel] 25 mg PO QPM 08/04/19 08/04/19 Spironolactone 100 mg PO DAILY 08/04/19 08/04/19 lamoTRIgine [LaMICtal] 75 mg PO DAILY 08/04/19 08/04/19 Ciprofloxacin HCl [Cipro] 500 mg PO BID 9 Days #18 tablet 08/05/19 Ciprofloxacin [Cipro] 500 mg PO BID 9 Days tablet 08/05/19 Pantoprazole [Protonix] 40 mg PO QDAC 30 Days #0 tablet 08/05/19 levETIRAcetam [Keppra] 1,000 mg PO BID tablet 08/05/19 - PHYSICAL EXAM AT DISCHARGE General Appearance: positive: No acute distress Eyes Bilateral: positive: Normal inspection ENT: positive: Other (Poor dentition) Neck: positive: Nml inspection Respiratory: positive: Chest non-tender Cardiovascular: positive: Regular rate & rhythm Abdomen: positive: No organomegaly, Nml bowel sounds, Other (Mildly tender abdomen, mild distention) Skin: positive: Other (Multiple areas of bruising, ecchymosis) Extremities: positive: No pedal edema Neurologic/Psychiatric: positive: Oriented x3, CN's nml (2-12), Motor nml, Sensation nml, Mood/affect nml - LABS Result Diagrams: 08/04/19 04:45 08/04/19 04:45 - DIAGNOSTIC IMAGING Diagnostic Imaging Results: Prelim report reviewed - FOLLOW UP Follow Up: Dr Bentley @ 11:15 on August 11 - TIME SPENT Time Spent in Discharge (Minutes): 33
== END 2019-08-05 15:15 | disposition home health service (06) | DRG 441 ==
LOC: ED 15:08 → MS2 22:15 → OBSVTOIN 08-04 13:23
PROVIDERS: ADMIT Internal Medicine; ATTEND Family Medicine Sports Medicine
DX: K72.90 Hepatic failure, unspecified without coma (principal); K65.2 Spontaneous bacterial peritonitis; N39.0 Urinary tract infection, site not specified; E87.1 Hypo-osmolality and hyponatremia; D68.51 Activated protein C resistance; K92.1 Melena; N17.9 Acute kidney failure, unspecified; I10 Essential (primary) hypertension; F10.10 Alcohol abuse, uncomplicated; D64.9 Anemia, unspecified; K75.81 Nonalcoholic steatohepatitis (NASH); K70.31 Alcoholic cirrhosis of liver with ascites; B96.20 Unspecified Escherichia coli [E. coli] as the cause of diseases classified elsewhere; G40.909 Epilepsy, unspecified, not intractable, without status epilepticus; F43.10 Post-traumatic stress disorder, unspecified; F41.0 Panic disorder [episodic paroxysmal anxiety]; F32.9 Major depressive disorder, single episode, unspecified; R32 Unspecified urinary incontinence; K59.09 Other constipation; Z79.01 Long term (current) use of anticoagulants; Z86.718 Personal history of other venous thrombosis and embolism; Z85.42 Personal history of malignant neoplasm of other parts of uterus; Z86.711 Personal history of pulmonary embolism; Z80.0 Family history of malignant neoplasm of digestive organs; Z90.710 Acquired absence of both cervix and uterus
CPT/HCPCS: 36415; 51798; 71045; 74176; 80048; 80053; 80076; 81001; 82140; 82272; 82607; 82728; 82746; 83540; 83690; 83735; 84100; 84466; 85025; 85610; 86850; 86900; 86901; 87040; 96360; 96361; 99285; A9270; G0378; Q0162; Q0169; 81003; 85027; 87086

== ENCOUNTER 2019-08-06 14:18 | Outpatient (CLI) | payer MEDICARE | END 2019-08-06 14:19 | disposition critical access hospital (66) | LOC: EMS 14:18 | PROVIDERS: ATTEND Surgery | DX: R10.9 Unspecified abdominal pain (principal) | CPT/HCPCS: A0425; A0429 ==

== ENCOUNTER 2019-08-06 14:22 | Emergency (ER) | payer MEDICAID, MEDICARE ==
--- NOTE | 2019-08-06 15:13 | ED Physician Documentation ---
History of Present Illness - Stated complaint Stated Complaint: ABD PX - Chief complaint Chief Complaint: Abd Pain - History obtained from History obtained from: Patient - History of Present Illness Pain level max: 8 Pain level now: 8 - Additonal information Additional information: 53-year-old female with a past medical history significant for liver cirrhosis secondary to alcohol use, history of DVT, factor V Leiden on Eliquis, epilepsy and PTSD. Patient is unsure why she is here. She states that her daughter talked to a doctor today and they were told to come to the emergency department. Patient has end-stage liver disease. She was recently admitted to the hospital with elevated ammonia and hepatic encephalopathy. She is currently on ciprofloxacin. She states she has had abdominal pain for 3 months and it is no different today. States she was supposed to have oxycodone from her hospital stay but it was not prescribed. She has noted BRBPR as well today. Review of Systems Ten Systems: 10 systems reviewed and negative Constitutional: denies: Fever, Chills Ears: denies: Ear pain Nose: denies: Rhinorrhea / runny nose, Congestion Cardiac: denies: Chest pain / pressure Respiratory: denies: Cough GI: reports: Abdominal Pain (chronic and unchanged). denies: Nausea, Vomiting, Diarrhea Skin: denies: Rash Musculoskeletal: denies: Neck pain, Back pain Neurologic: denies: Headache PD PAST MEDICAL HISTORY - Past Medical History Past Medical History: Yes Cardiovascular: Hypertension, Deep vein thrombosis, Pulmonary embolism Respiratory: None Neuro: Seizure disorder Endocrine/Autoimmune: None GI: Chronic constipation, Other : Incontinence HEENT: None Psych: Depression, Anxiety, Panic attacks, Post traumatic stress disorder Musculoskeletal: None Derm: None, Other - Past Surgical History Past Surgical History: Yes General: Gastric surgery, Colonoscopy, EGD 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, Hysterectomy, Breast reduction Cardiovascular: Vascular surgery HEENT: Tonsil/Adenoidectomy - Present Medications Home Medications: Ambulatory Orders Medication Instructions Recorded Confirmed Furosemide 40 mg PO DAILY 08/04/19 08/04/19 Hydrocortisone [Procto-Med Hc] 1 applic RC QID PRN 08/04/19 08/04/19 Omeprazole 40 mg PO DAILY 08/04/19 08/04/19 Ondansetron [Ondansetron Odt] 4 mg PO AC 08/04/19 08/04/19 QUEtiapine [SEROquel] 25 mg PO QPM 08/04/19 08/04/19 Spironolactone 100 mg PO DAILY 08/04/19 08/04/19 lamoTRIgine [LaMICtal] 75 mg PO DAILY 08/04/19 08/04/19 Ciprofloxacin HCl [Cipro] 500 mg PO BID 9 Days #18 tablet 08/05/19 Ciprofloxacin [Cipro] 500 mg PO BID 9 Days tablet 08/05/19 Pantoprazole [Protonix] 40 mg PO QDAC 30 Days #0 tablet 08/05/19 levETIRAcetam [Keppra] 1,000 mg PO BID tablet 08/05/19 - Allergies Allergies/Adverse Reactions: Allergies Allergy/AdvReac Type Severity Reaction Status Date / Time cephalexin monohydrate * Allergy Welts Verified 08/06/19 14:28 [From [employer]] - Social History Does the pt smoke?: No Smoking Status: Never smoker Does the pt drink ETOH?: Yes Does the pt have substance abuse?: No - Immunizations Immunizations are current?: Yes - POLST Patient has POLST: No PD ED PE NORMAL - Vitals Vital signs reviewed: Yes - General General: Alert and oriented X 3, No acute distress, Well developed/nourished - HEENT HEENT: Moist mucous membranes - Neck Neck: Supple, no meningeal sign - Cardiac Cardiac: RRR, Strong equal pulses - Respiratory Respiratory: No respiratory distress, Clear bilaterally - Abdomen Abdomen: Soft, Other (mild distention and mild diffuse TTP. no peritoneal signs. ) - Derm Derm: Warm and dry - Extremities Extremities: No calf tenderness / cord - Neuro Neuro: Alert and oriented X 3 - Psych Psych: Normal mood, Normal affect Results - Vitals Vitals: Vital Signs - 24 hr 08/06/19 08/06/19 14:23 15:49 Temperature 37.3 C Heart Rate 95 55 L Respiratory 18 20 Rate Blood Pressure 105/76 106/73 O2 Saturation 99 97 Oxygen O2 Source Room air - Labs Labs: Laboratory Tests 08/06/19 08/06/19 08/06/19 15:44 15:44 15:44 WBC 17.4 H RBC 2.27 L Hgb 7.3 L Hct 22.1 L MCV 97.4 MCH 32.2 H MCHC 33.0 RDW 18.0 H Plt Count 378 MPV 8.8 Neut # (Auto) Not Reportable Lymph # (Auto) Not Reportable [place] # (Auto) Not Reportable Eos # (Auto) Not Reportable Baso # (Auto) Not Reportable Absolute Nucleated RBC Not Reportable Total Counted 100 Band Neuts % (Manual) 2 Abnorm Lymph % (Manual) 0 Nucleated RBC % Not Reportable Neutrophils # (Manual) 16.0 H Lymphocytes # (Manual) 0.5 L Monocytes # (Manual) 0.5 Eosinophils # (Manual) 0.3 Basophils # (Manual) 0.0 Differential Comment MANUAL DIFFERENTIAL Manual Slide Review Indicated WBC Morphology NORMAL APPEARANCE Platelet Estimate NORMAL (130-450,000) Platelet Morphology NORMAL APPEARANCE RBC Morph Micro Appear 1+ ANISOCYTOSIS PT 17.4 H INR 1.6 H APTT 45.2 H Sodium 133 L Potassium 4.0 Chloride 108 Carbon Dioxide 21 Anion Gap 4.0 L BUN 11 Creatinine 0.9 Estimated GFR (MDRD) 65 L Glucose 115 H Calcium 7.2 L Total Bilirubin 3.0 H AST 166 H ALT 45 Alkaline Phosphatase 235 H Total Protein 5.8 L Albumin 1.6 L Globulin 4.2 Albumin/Globulin Ratio 0.4 L Lipase 27 PD MEDICAL DECISION MAKING - ED course Complexity details: reviewed results, re-evaluated patient, considered differential, d/w patient, d/w family, d/w automotive consultant ED course: 53-year-old female is followed by Dr. Kenyon at [facility] in [place]. She request transfer there. She does have a GI bleed, Hemoccult positive, and has dropped her hemoglobin down to 7.3. She was at 9.8 in May. She will likely need blood transfusion, possible colonoscopy and endoscopy. She has a very difficult IV stick, I was able to draw blood on her, anesthesia was contacted for IV placement. Discussed the case with Dr. Baker senior controls technician for Dr. Kenyon, recommends contacting the hospitalist. Discussed the case with Dr. Burrell, hospitalist at [facility] who feels that she is too complex for there and recommends transfer to [facility] with such as [facility]. Patient does not want to stay in the hospital here. Patient and her daughter request transfer. Discussed the case with Dr. Morgan, GI at [facility] who recommends transfusion of a unit of blood and then she can follow-up in clinic next week. He took her name. Patient refuses blood transfusion. She refuses an IV. Patient signed AGAINST MEDICAL ADVICE. I contacted the patient's daughter who states that she will call and speak with the patient. Patient's daughter also spoke with the patient. Patient continues to refuse any further care at this time. Patient signed AGAINST MEDICAL ADVICE and walked herself out of the emergency department. Patient informed that she is welcome to return anytime should she change her mind. Departure - Departure Disposition: Against Medical Advice Clinical Impression: Alcoholic cirrhosis of liver with ascites GI bleed Qualifiers: GI bleed type/associated pathology: unspecified gastrointestinal hemorrhage type Qualified Code(s): K92.2 - Gastrointestinal hemorrhage, unspecified Anemia Qualifiers: Anemia type: unspecified type Qualified Code(s): D64.9 - Anemia, unspecified Condition: Stable
[2019-08-06 15:51] VITALS: BP 106/73
[2019-08-06 15:51] LABS: BASOPHILS % (AUTO) 0.4 %; EOSINOPHILS % (AUTO) 1.6 %; HGB - HEMOGLOBIN 7.3 g/dL (12.0-16.0); LYMPHOCYTES % (AUTO) 8.6 %; MEAN CORPUSCULAR HEMOGLOBIN 32.2 pg (27.0-31.0); MEAN CORPUSCULAR VOLUME 97.4 fL (81.0-99.0); MEAN PLATELET VOLUME 8.8 fL (7.9-10.8); MONOCYTES % (AUTO) 10.7 %; NEUTROPHILS % (AUTO) 77.8 %; PLT - PLATELET COUNT 378 10^3/uL (130-450); RED BLOOD COUNT 2.27 10^6/uL (4.20-5.40); WHITE BLOOD COUNT 17.4 x10^3/uL (4.8-10.8)
[2019-08-06 15:53] LABS: ABNORMAL LYMPHS % (MANUAL) 0 %
[2019-08-06 15:56] LABS: INR 1.6 (0.8-1.2); PT - PROTHROMBIN TIME 17.4 secs (9.9-12.6)
[2019-08-06 16:04] LABS: ALBUMIN 1.6 g/dL (3.2-5.5); ALBUMIN/GLOBULIN RATIO 0.4 (1.0-2.2); CALCIUM 7.2 mg/dL (8.5-10.3); CREATININE 0.9 mg/dL (0.4-1.0); TOTAL PROTEIN 5.8 g/dL (6.7-8.2)
[2019-08-06 16:10] LABS: BAND NEUTROPHILS % (MANUAL) 2 %; EOSINOPHILS # (MANUAL) 0.3 10^3/uL (0-0.7); LYMPHOCYTES # (MANUAL) 0.5 10^3/uL (1.5-3.5); LYMPHOCYTES % (MANUAL) 3 %; MONOCYTES # (MANUAL) 0.5 10^3/uL (0.0-1.0); PARTIAL THROMBOPLASTIN TIME 45.2 secs (24.9-33.3); PLATELET ESTIMATE, MANUAL NORMAL (130-450,000) (NORMAL); PLATELET MORPHOLOGY NORMAL APPEARANCE (NORMAL); RBC MORPHOLOGY (MULTIPLE) 1+ ANISOCYTOSIS (NORMAL)
[2019-08-06 16:11] LABS: DIFFERENTIAL COMMENT MANUAL DIFFERENTIAL
[2019-08-06] MEDS: oxyCODONE 5 MG TABLET PO STA (16:14)
== END 2019-08-06 17:26 | disposition left against medical advice (07) ==
LOC: EDUNIT# → ED 14:22
DX: K70.31 Alcoholic cirrhosis of liver with ascites (principal); K92.2 Gastrointestinal hemorrhage, unspecified; D64.9 Anemia, unspecified; K72.90 Hepatic failure, unspecified without coma; Z53.29 Procedure and treatment not carried out because of patient's decision for other reasons
CPT/HCPCS: 36415; 80053; 82140; 83690; 85025; 85610; 85730

== ENCOUNTER 2019-08-06 18:30 | Observation (INO) | payer MEDICARE ==
[2019-08-06] MEDS ORDERED: SODIUM CHLORIDE 0.9% 1,000 ML IV ONE (19:42)
--- NOTE | 2019-08-06 19:47 | ED Physician Documentation ---
History of Present Illness - Stated complaint Stated Complaint: ABD PX - Chief complaint Chief Complaint: Abd Pain - History obtained from History obtained from: Patient - History of Present Illness Timing: Today Pain level max: 8 Pain level now: 8 - Additonal information Additional information: 53-year-old female was seen here earlier today. She has alcoholic cirrhosis. She left AGAINST MEDICAL ADVICE. She has now changed her mind and is requesting the blood transfusion as previously planned. She has had bright red blood per rectum earlier today. She states that she had a colonoscopy in May of this year. I discussed the case with GI earlier today. Patient has no other new symptoms from her visit earlier today. No fevers. No vomiting. Nothing makes it better or worse. Patient is on Eliquis. Review of Systems Ten Systems: 10 systems reviewed and negative Constitutional: denies: Fever, Chills Throat: denies: Sore throat Cardiac: denies: Chest pain / pressure Respiratory: denies: Cough GI: denies: Vomiting, Diarrhea Skin: denies: Rash Musculoskeletal: denies: Neck pain, Back pain Neurologic: denies: Headache PD PAST MEDICAL HISTORY - Past Medical History Cardiovascular: Hypertension, Deep vein thrombosis, Pulmonary embolism Respiratory: None Neuro: Seizure disorder Endocrine/Autoimmune: None GI: Chronic constipation, Other : Incontinence HEENT: None Psych: Depression, Anxiety, Panic attacks, Post traumatic stress disorder Musculoskeletal: None Derm: None, Other - Past Surgical History Past Surgical History: Yes General: Gastric surgery, Colonoscopy, EGD Ortho: 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: 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 and currettage, Hysterectomy, Breast reduction Cardiovascular: Vascular surgery HEENT: Tonsil/Adenoidectomy - Present Medications Home Medications: Ambulatory Orders Medication Instructions Recorded Confirmed Furosemide 40 mg PO DAILY 08/04/19 08/04/19 Hydrocortisone [Procto-Med Hc] 1 applic RC QID PRN 08/04/19 08/04/19 Omeprazole 40 mg PO DAILY 08/04/19 08/04/19 Ondansetron [Ondansetron Odt] 4 mg PO AC 08/04/19 08/04/19 QUEtiapine [SEROquel] 25 mg PO QPM 08/04/19 08/04/19 Spironolactone 100 mg PO DAILY 08/04/19 08/04/19 lamoTRIgine [LaMICtal] 75 mg PO DAILY 08/04/19 08/04/19 Ciprofloxacin HCl [Cipro] 500 mg PO BID 9 Days #18 tablet 08/05/19 Ciprofloxacin [Cipro] 500 mg PO BID 9 Days tablet 08/05/19 Pantoprazole [Protonix] 40 mg PO QDAC 30 Days #0 tablet 08/05/19 levETIRAcetam [Keppra] 1,000 mg PO BID tablet 08/05/19 - Allergies Allergies/Adverse Reactions: Allergies Allergy/AdvReac Type Severity Reaction Status Date / Time cephalexin monohydrate * Allergy Welts Verified 08/06/19 18:37 [From Keflex] - Social History Does the pt smoke?: No Smoking Status: Never smoker Does the pt drink ETOH?: Yes Does the pt have substance abuse?: No - Immunizations Immunizations are current?: Yes - POLST Patient has POLST: No PD ED PE NORMAL - Vitals Vital signs reviewed: Yes - General General: Alert and oriented X 3, No acute distress - HEENT HEENT: Moist mucous membranes - Neck Neck: Supple, no meningeal sign - Cardiac Cardiac: RRR - Respiratory Respiratory: No respiratory distress, Clear bilaterally - Abdomen Abdomen: Soft, Other (Mild distention, mild diffuse tenderness. No peritoneal signs) - Rectal Rectal: Pt declined - Derm Derm: Warm and dry - Extremities Extremities: No calf tenderness / cord - Neuro Neuro: Alert and oriented X 3 - Psych Psych: Normal mood, Normal affect Results - Vitals Vitals: Vital Signs - 24 hr 08/06/19 08/06/19 08/06/19 18:35 20:35 20:53 Temperature 36.0 C L 37.1 C Heart Rate 92 88 87 Respiratory 18 14 14 Rate Blood Pressure 108/77 108/66 108/66 O2 Saturation 98 96 08/06/19 08/06/19 21:07 21:35 Temperature 37.4 C Heart Rate 85 94 Respiratory 14 14 Rate Blood Pressure 113/80 98/73 O2 Saturation 99 99 Oxygen O2 Source Room air - Labs Labs: Laboratory Tests 08/06/19 08/06/19 08/06/19 19:44 19:44 19:44 WBC 17.8 H RBC 2.36 L Hgb 7.6 L Hct 23.6 L MCV 100.0 H MCH 32.2 H MCHC 32.2 RDW 18.5 H Plt Count 422 MPV 9.0 Neut # (Auto) 15.2 H Lymph # (Auto) 1.1 L [place] # (Auto) 1.3 H Eos # (Auto) 0.0 Baso # (Auto) 0.1 Absolute Nucleated RBC 0.00 Nucleated RBC % 0.0 PT 17.0 H INR 1.5 H APTT 44.4 H Sodium Potassium Chloride Carbon Dioxide Anion Gap BUN Creatinine Estimated GFR (MDRD) Glucose Calcium Phosphorus Magnesium Total Bilirubin AST ALT Alkaline Phosphatase Ammonia Total Protein Albumin Globulin Albumin/Globulin Ratio Lipase Blood Type A POSITIVE Antibody Screen NEGATIVE Crossmatch IS Only See Detail 08/06/19 08/06/19 08/06/19 19:44 19:44 19:44 WBC RBC Hgb Hct MCV MCH MCHC RDW Plt Count MPV Neut # (Auto) Lymph # (Auto) [place] # (Auto) Eos # (Auto) Baso # (Auto) Absolute Nucleated RBC Nucleated RBC % PT INR APTT Sodium 132 L Potassium 4.0 Chloride 105 Carbon Dioxide 21 Anion Gap 6.0 BUN 11 Creatinine 0.8 Estimated GFR (MDRD) 74 L Glucose 115 H Calcium 7.4 L Phosphorus 3.3 Magnesium 2.3 Total Bilirubin 3.6 H AST 170 H ALT 49 Alkaline Phosphatase 258 H Ammonia 26.0 Total Protein 6.3 L Albumin 1.7 L Globulin 4.6 H Albumin/Globulin Ratio 0.4 L Lipase 26 Blood Type Antibody Screen Crossmatch IS Only PD MEDICAL DECISION MAKING - ED course Complexity details: reviewed old records, reviewed results, re-evaluated patient, considered differential, d/w patient, d/w software security consultant ED course: 53-year-old female presents to the emergency department with a lower GI bleed, baseline hemoglobin is around 10, she is now down to 7.3 earlier today. I had discussed the case with GI earlier in the day, they recommend transfusion, repeat H&H to ensure stability and discharge home if stable. Dr. Morgan was the GI physician. I contacted Dr. Dubose, the hospitalist here who refuses admission or observation care. He states that the patient can be managed in the emergency department, receive her blood transfusions down here and serial H&H. He states that she does not need to be admitted to the hospital or placed in observation for this. Patient was given Rocephin. 2 units of blood were ordered for transfusion. This document was made in part using voice recognition software. While efforts are made to proofread this document, sound alike and grammatical errors may occur. Plan will be to recheck her hemoglobin after transfusion. She has an appointment with GI next week. She is already on ciprofloxacin at home. Patient signed out to the oncoming emergency department physician. Departure - Departure Clinical Impression: Symptomatic anemia GI bleed Qualifiers: GI bleed type/associated pathology: unspecified gastrointestinal hemorrhage type Qualified Code(s): K92.2 - Gastrointestinal hemorrhage, unspecified Condition: Stable
[2019-08-06 19:53] LABS: BASOPHILS # (AUTO) 0.1 10^3/uL (0.0-0.1); BASOPHILS % (AUTO) 0.4 %; EOSINOPHILS % (AUTO) 0.1 %; HGB - HEMOGLOBIN 7.6 g/dL (12.0-16.0); LYMPHOCYTES # (AUTO) 1.1 10^3/uL (1.5-3.5); LYMPHOCYTES % (AUTO) 6.1 %; MEAN CORPUSCULAR HEMOGLOBIN 32.2 pg (27.0-31.0); MEAN CORPUSCULAR HGB CONC 32.2 g/dL (32.0-36.0); MONOCYTES # (AUTO) 1.3 10^3/uL (0.0-1.0); MONOCYTES % (AUTO) 7.2 %; NEUTROPHILS # (AUTO) 15.2 10^3/uL (1.5-6.6); NEUTROPHILS % (AUTO) 85.4 %; PLT - PLATELET COUNT 422 10^3/uL (130-450); RED BLOOD COUNT 2.36 10^6/uL (4.20-5.40); RED CELL DISTRIBUTION WIDTH 18.5 % (12.0-15.0); WHITE BLOOD COUNT 17.8 x10^3/uL (4.8-10.8)
[2019-08-06] MEDS ORDERED: cefTRIAXone 1 GM VIAL IVP STA (19:53)
[2019-08-06 19:56] LABS: INR 1.5 (0.8-1.2)
[2019-08-06 20:04] LABS: PARTIAL THROMBOPLASTIN TIME 44.4 secs (24.9-33.3)
[2019-08-06 20:06] LABS: ALBUMIN 1.7 g/dL (3.2-5.5); ALBUMIN/GLOBULIN RATIO 0.4 (1.0-2.2); BILIRUBIN,TOTAL 3.6 mg/dL (0.2-1.0); CALCIUM 7.4 mg/dL (8.5-10.3); CREATININE 0.8 mg/dL (0.4-1.0); TOTAL PROTEIN 6.3 g/dL (6.7-8.2)
[2019-08-06 21:09] LABS: MAGNESIUM 2.3 mg/dL (1.7-2.8); PHOSPHORUS 3.3 mg/dL (2.5-4.6)
--- NOTE | 2019-08-06 21:43 | CONSULTATION NOTE ---
Referring Provider Name of Referring Provider:: Dr. Musa Agudelo Consult Date: 08/06/19 Chief Complaint - Chief Complaint Chief Complaint: Abdominal pain History of Present Illness - Admitted From Admitted From:: Home - History Obtained From Records Reviewed: Yes History obtained from: Patient, ER Physician, EMR - History of Present Illness HPI Comment/Other: This is a 53-year-old female with a past medical history significant for liver cirrhosis, prior history of alcoholism, Factor V Leiden, history of DVT on Eliquis, epilepsy, PTSD who presents today to the emergency department complaining of abdominal pain. She was just discharged from here a couple of days ago after being treated for hepatic encephalopathy. This was a new diagnosis for her and she was treated with lactulose with improvement in her ammonia. At that time, a paracentesis was considered but given there was not a significant amount of ascites on imaging, it was deferred. She was given ceftriaxone and discharged on ciprofloxacin empirically for SBP. Her hemoglobin during that admission had increased to 7.9 prior to discharge. Her stool occult on that admission was positive but she did not have signs of significant bleeding. Today she returned to the emergency department after her daughter spoke with the physician who recommended that she head to the emergency department. She told the provider in the emergency department that she noted bright red blood per rectum today. Repeat labs during that visit showed a hemoglobin of 7.3. Given her stool was Hemoccult positive, the hospitalist at [facility] was contacted who felt the patient would be too complex for their facility and recommended t ransfer to a facility with gastroenterology such as [facility]. The patient also did not want to be admitted here. Gastroenterology at [facility] was contacted and they felt that she could just be transfused and followed up in clinic next week. The patient denied a transfusion and intravenous placement and she left AGAINST MEDICAL ADVICE. She returned to the emerge department a few hours later and is now agreeable to a blood transfusion as was previously planned. Given this, I was consulted by the emergency department physician for observation. The patient states that she continues to have abdominal pain that is chronic in nature has been present for a few months now. She did have an endoscopy and colonoscopy back in May. She reports she had a couple of polyps that were benign. She states these were performed at [facility] but she is not sure who the provider was. Gastroenterology did not have records of these procedures when they were contacted by the emergency department provider earlier on in the day. The patient reports she has no fevers but does have chills which is also chronic for her and that she always feels cold. She reports some nausea and poor appetite but this is also ongoing. She is taking Eliquis for her history of DVT and factor V Leiden. She reports noticing some blood in her stool at times. She states she has not had a bowel movement today although she told the provider earlier that she had some bright red blood per rectum. Repeat labs in the afternoon showed her hemoglobin was 7.6. 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 She never smoked. He is having alcohol in her 40s and was drinking a daily basis for 5 years. She states she has quit now for over quite a few years. - Substance History Use: Uses substance without health or social issues: NONE - POLST Patient has POLST: No Meds/Allgy - Home Medications Home Medications: Ambulatory Orders Medication Instructions Recorded Confirmed Furosemide 40 mg PO DAILY 08/04/19 08/04/19 Hydrocortisone [Procto-Med Hc] 1 applic RC QID PRN 08/04/19 08/04/19 Omeprazole 40 mg PO DAILY 08/04/19 08/04/19 Ondansetron [Ondansetron Odt] 4 mg PO AC 08/04/19 08/04/19 QUEtiapine [SEROquel] 25 mg PO QPM 08/04/19 08/04/19 Spironolactone 100 mg PO DAILY 08/04/19 08/04/19 lamoTRIgine [LaMICtal] 75 mg PO DAILY 08/04/19 08/04/19 Ciprofloxacin HCl [Cipro] 500 mg PO BID 9 Days #18 tablet 08/05/19 Ciprofloxacin [Cipro] 500 mg PO BID 9 Days tablet 08/05/19 Pantoprazole [Protonix] 40 mg PO QDAC 30 Days #0 tablet 08/05/19 levETIRAcetam [Keppra] 1,000 mg PO BID tablet 08/05/19 - Allergies Allergies/Adverse Reactions: Allergies Allergy/AdvReac Type Severity Reaction Status Date / Time cephalexin monohydrate * Allergy Welts Verified 08/06/19 18:37 [From Keflex] Review of Systems - Constitutional Constitutional: reports: Fatigue, Chills, Poor appetite. denies: Fever - Cardiovascular Cariovascular: reports: Edema. denies: Chest pain, Exertional dyspnea, Decr. exercise tolerance - Respiratory Respiratory: denies: Cough, SOB at rest, SOB with exertion - Gastrointestinal Gastrointestinal: reports: Abdominal pain, Rectal bleeding, Nausea, Vomiting. denies: Diarrhea - Genitourinary Genitourinary: denies: Dysuria, Frequency - Integumentary Integumentary: denies: Rash - Neurological Neurological: reports: General weakness. denies: Focal weakness - Hematologic/Lymphatic Hematologic/Lymphatic: reports: Anemia Exam - Vital Signs Reviewed Vital Signs: Yes Vital Signs: Vital Signs x48h Temp Pulse Resp BP Pulse Ox 08/06/19 21:35 94 14 98/73 99 08/06/19 21:07 37.4 C 85 14 113/80 99 08/06/19 20:53 37.1 C 87 14 108/66 08/06/19 20:35 88 14 108/66 96 08/06/19 18:35 36.0 C L 92 18 108/77 98 - Physical Exam General Appearance: positive: No acute distress, Alert Eyes Bilateral: positive: Other (Scleral icterus is noted). negative: No scleral icterus ENT: positive: ENT inspection nml Neck: positive: Nml inspection Respiratory: positive: No respiratory distress. negative: Wheezes, Rales, Rhonchi Cardiovascular: positive: Regular rate & rhythm, No murmur. negative: Tachycardia, Bradycardia, Systolic murmur Abdomen: positive: Nml bowel sounds, Tenderness (Mild tenderness throughout the abdomen.). negative: Non-tender, No distention (Mild distention.), Guarding, Rebound Skin: positive: No rash, Warm, Dry Extremities: positive: Full ROM, Pedal edema (She has +3 pitting edema in her left lower extremity and +2 pitting edema in her right lower extremity.) Neurologic/Psychiatric: positive: Oriented x3, Motor nml, Other (She has no focal motor deficits on exam.). negative: Disoriented to person, Disoriented to place, Disoriented to time Conclusion/Plan - Diagnosis Diagnosis: 1) Anemia. 2) Liver Cirrhosis. 3) History of DVT on Eliquis. 4) History of Factor 5 Leiden. 5) On half-way anticoagulation - Plan Plan: Her hemoglobin this evening is 7.6 which is relatively stable since the 02 of August. She is Hemoccult positive but I would have expected her hemoglobin to be declining over the past few days if this was a significant hemorrhage given she is also on Eliquis for her history of DVT. I do think it is reasonable to transfuse her one unit packed red blood cell. I will defer to the emergency department physician regarding how many units to transfuse. The patient is hemodynamically stable and is not actively hemorrhaging given her stable hemoglobin over the past few days. I do not believe that she requires an observation admission and that she can be transfused in the emergency department and then discharged home. This is based off of the fact that she is hemodynamically stable, her anemia is chronic, and has been stable over the last four days ranging from 7.4 to 7.9 with most recent value being 7.6. Observation would be warranted if there was concern for active bleeding but given her history of liver cirrhosis, this would not be appropriate at this facility given we do not have gastroenterology available. The emergency department physician has already contacted gastroenterology at [facility] and they felt that urgent endoscopy was not warranted. They recommended transfusion and f ollow up next week in clinic. They will be setting up an appointment for her. This was discussed with the emergency department provider, Dr. Musa Agudelo. - Lab Results Lab results reviewed: Yes Fish Bones: 08/06/19 19:44 08/06/19 19:44
[2019-08-06] MEDS ORDERED: diphenhydrAMINE INJ 50 MG/ML VIAL IVP STA (22:53)
[2019-08-06] MEDS ORDERED: diphenhydrAMINE INJ 50 MG/ML VIAL ONE (22:57)
--- NOTE | 2019-08-06 22:57 | ED Physician Documentation ---
History of Present Illness - Stated complaint Stated Complaint: ABD PX - Chief complaint Chief Complaint: Abd Pain - History obtained from History obtained from: Patient (Patient was signed out to me at shift change by Dr. Mar please see separate history and physical note for further details additionally the patient was evaluated by the hospitalist Dr. Dubose, Please see the hospitalist note as well.) Review of Systems Constitutional: reports: Reviewed and negative Eyes: reports: Reviewed and negative Ears: reports: Reviewed and negative Nose: reports: Reviewed and negative Throat: reports: Reviewed and negative Cardiac: reports: Reviewed and negative Respiratory: reports: Reviewed and negative GI: reports: Abdominal Pain, Bloody / black stool : reports: Reviewed and negative Skin: reports: Reviewed and negative Musculoskeletal: reports: Reviewed and negative Neurologic: reports: Reviewed and negative Psychiatric: reports: Reviewed and negative Endocrine: reports: Reviewed and negative Immunocompromised: reports: Reviewed and negative PD PAST MEDICAL HISTORY - Past Medical History Cardiovascular: Hypertension, Deep vein thrombosis, Pulmonary embolism Respiratory: None Neuro: Seizure disorder Endocrine/Autoimmune: None GI: Chronic constipation, Other : Incontinence HEENT: None Psych: Depression, Anxiety, Panic attacks, Post traumatic stress disorder Musculoskeletal: None Derm: None, Other - Past Surgical History Past Surgical History: Yes General: Gastric surgery, Colonoscopy, EGD Ortho: Other /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, Hysterectomy, Breast reduction Cardiovascular: Vascular surgery HEENT: Tonsil/Adenoidectomy - Present Medications Home Medications: Ambulatory Orders Medication Instructions Recorded Confirmed Furosemide 40 mg PO DAILY 08/04/19 08/04/19 Hydrocortisone [Procto-Med Hc] 1 applic RC QID PRN 08/04/19 08/04/19 Omeprazole 40 mg PO DAILY 08/04/19 08/04/19 Ondansetron [Ondansetron Odt] 4 mg PO AC 08/04/19 08/04/19 QUEtiapine [SEROquel] 25 mg PO QPM 08/04/19 08/04/19 Spironolactone 100 mg PO DAILY 08/04/19 08/04/19 lamoTRIgine [LaMICtal] 75 mg PO DAILY 08/04/19 08/04/19 Ciprofloxacin HCl [Cipro] 500 mg PO BID 9 Days #18 tablet 08/05/19 Ciprofloxacin [Cipro] 500 mg PO BID 9 Days tablet 08/05/19 Pantoprazole [Protonix] 40 mg PO QDAC 30 Days #0 tablet 08/05/19 levETIRAcetam [Keppra] 1,000 mg PO BID tablet 08/05/19 - Allergies Allergies/Adverse Reactions: Allergies Allergy/AdvReac Type Severity Reaction Status Date / Time cephalexin monohydrate * Allergy Welts Verified 08/06/19 18:37 [From Keflex] - Social History Does the pt smoke?: No Smoking Status: Never smoker Does the pt drink ETOH?: Yes Does the pt have substance abuse?: No - Immunizations Immunizations are current?: Yes - POLST Patient has POLST: No PD ED PE NORMAL - Vitals Vital signs reviewed: Yes - General General: Alert and oriented X 3, No acute distress - HEENT HEENT: PERRL - Neck Neck: Supple, no meningeal sign - Cardiac Cardiac: RRR, No murmur - Respiratory Respiratory: Clear bilaterally - Abdomen Abdomen: Normal bowel sounds, Soft, Non tender, Non distended - Derm Derm: Warm and dry - Extremities Extremities: No deformity - Neuro Neuro: Alert and oriented X 3 - Psych Psych: Normal mood, Normal affect Results - Vitals Vitals: Vital Signs - 24 hr 08/06/19 08/06/19 08/06/19 18:35 20:35 20:53 Temperature 36.0 C L 37.1 C Heart Rate 92 88 87 Respiratory 18 14 14 Rate Blood Pressure 108/77 108/66 108/66 O2 Saturation 98 96 08/06/19 08/06/19 08/06/19 21:07 21:35 22:00 Temperature 37.4 C Heart Rate 85 94 84 Respiratory 14 14 16 Rate Blood Pressure 113/80 98/73 113/77 O2 Saturation 99 99 99 08/06/19 08/06/19 08/06/19 22:26 22:43 23:00 Temperature 36.4 C L 37 C Heart Rate 92 90 87 Respiratory 18 16 14 Rate Blood Pressure 113/77 90/69 111/77 O2 Saturation 98 Oxygen O2 Source Room air - Labs Labs: Laboratory Tests 08/06/19 08/06/19 08/06/19 19:44 19:44 19:44 WBC 17.8 H RBC 2.36 L Hgb 7.6 L Hct 23.6 L MCV 100.0 H MCH 32.2 H MCHC 32.2 RDW 18.5 H Plt Count 422 MPV 9.0 Neut # (Auto) 15.2 H Lymph # (Auto) 1.1 L [place] # (Auto) 1.3 H Eos # (Auto) 0.0 Baso # (Auto) 0.1 Absolute Nucleated RBC 0.00 Nucleated RBC % 0.0 PT 17.0 H INR 1.5 H APTT 44.4 H Sodium Potassium Chloride Carbon Dioxide Anion Gap BUN Creatinine Estimated GFR (MDRD) Glucose Calcium Phosphorus Magnesium Total Bilirubin AST ALT Alkaline Phosphatase Ammonia Total Protein Albumin Globulin Albumin/Globulin Ratio Lipase Blood Type A POSITIVE Antibody Screen NEGATIVE Crossmatch IS Only See Detail 08/06/19 08/06/19 08/06/19 19:44 19:44 19:44 WBC RBC Hgb Hct MCV MCH MCHC RDW Plt Count MPV Neut # (Auto) Lymph # (Auto) [place] # (Auto) Eos # (Auto) Baso # (Auto) Absolute Nucleated RBC Nucleated RBC % PT INR APTT Sodium 132 L Potassium 4.0 Chloride 105 Carbon Dioxide 21 Anion Gap 6.0 BUN 11 Creatinine 0.8 Estimated GFR (MDRD) 74 L Glucose 115 H Calcium 7.4 L Phosphorus 3.3 Magnesium 2.3 Total Bilirubin 3.6 H AST 170 H ALT 49 Alkaline Phosphatase 258 H Ammonia 26.0 Total Protein 6.3 L Albumin 1.7 L Globulin 4.6 H Albumin/Globulin Ratio 0.4 L Lipase 26 Blood Type Antibody Screen Crossmatch IS Only PD MEDICAL DECISION MAKING - ED course Complexity details: re-evaluated patient (22:56 While patient was receiving blood transfusion the patient began to complain of itching at this point the patient was given 50 mg of IV Benadryl.), d/w sustainability consultant (23:08 case d/w hospitalist will admit for observation.), other (Patient signed out to me at shift change by Dr. Mar patient will be transfused 2 units of packed red blood cells we will recheck hemoglobin in approximately 6 in the morning.) Departure - Departure Disposition: ED Place in Observation Clinical Impression: Symptomatic anemia GI bleed Qualifiers: GI bleed type/associated pathology: unspecified gastrointestinal hemorrhage type Qualified Code(s): K92.2 - Gastrointestinal hemorrhage, unspecified Condition: Stable Discharge Date/Time: 08/07/19 00:33
[2019-08-06] MEDS ORDERED: SODIUM CHLORIDE FLUSH 0.9% 10 ML SYRINGE IVP PRN (23:13)
--- NOTE | 2019-08-06 23:18 | HISTORY & PHYSICAL EXAMINATION ---
Chief Complaint - Chief Complaint Chief Complaint: Abdominal pain History of Present Illness - Admitted From Admitted From:: Home - History Obtained From Records Reviewed: Yes History obtained from: Patient, ER Physician, EMR - History of Present Illness HPI Comment/Other: This is a 53-year-old female with a past medical history significant for liver cirrhosis, prior history of alcoholism, Factor V Leiden, history of DVT on Eliquis, epilepsy, PTSD who presents today to the emergency department complaining of abdominal pain. She was just discharged from here a couple of days ago after being treated for hepatic encephalopathy. This was a new d iagnosis for her and she was treated with lactulose with improvement in her ammonia. At that time, a paracentesis was considered but given there was not a significant amount of ascites on imaging, it was deferred. She was given ceftriaxone and discharged on ciprofloxacin empirically for SBP. Her hemoglobin during that admission had increased to 7.9 prior to discharge. Her stool occult on that admission was positive but she did not have signs of significant bleeding. Today she returned to the emergency department after her daughter spoke with the physician who recommended that she head to the emergency department. She told the provider in the emergency department that she noted bright red blood per rectum today. Repeat labs during that visit showed a hemoglobin of 7.3. Given her stool was Hemoccult positive, the hospitalist at [facility] was contacted who felt the patient would be too complex for their facility and recommended transfer to a facility with gastroenterology such as [facility]. The patient also did not want to be admitted here. Gastroenterology at [facility] (Dr. Morgan) was contacted and they felt that she could just be transfused and followed up in clinic next week. The patient denied a transfusion and intravenous placement and she left AGAINST MEDICAL ADVICE. She returned to the emerge department a few hours later and is now agreeable to a blood transfusion as was previously planned. Given this, I was consulted by the emergency department physician for observation. The patient states that she continues to have abdominal pain that is chronic in nature has been present for a few months now. She did have an endoscopy and colonoscopy back in May. She reports she had a couple of polyps that were benign. She states these were performed at [facility] but she is not sure who the provider was. Gastroenterology did not have records of these procedures when they were contacted by the emergency department provider earlier on in the day. The patient reports she has no fevers but does have chills which is also chronic for her and that she always feels cold. She reports some nausea and poor appetite but this is also ongoing. She is taking Eliquis for her history of DVT and factor V Leiden. She reports noticing some blood in her stool at times. She states she has not had a bowel movement today although she told the provider earlier that she had some bright red blood per rectum. Repeat labs in the afternoon showed her hemoglobin was 7.6. She would like to be a full code. 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 She never smoked. He is having alcohol in her 40s and was drinking a daily basis for 5 years. She states she has quit now for over quite a few years. - Substance History Use: Uses substance without health or social issues: NONE - POLST Patient has POLST: No Meds/Allgy - Home Medications Home Medications: Ambulatory Orders Medication Instructions Recorded Confirmed Furosemide 40 mg PO DAILY 08/04/19 08/04/19 Hydrocortisone [Procto-Med Hc] 1 applic RC QID PRN 08/04/19 08/04/19 Omeprazole 40 mg PO DAILY 08/04/19 08/04/19 Ondansetron [Ondansetron Odt] 4 mg PO AC 08/04/19 08/04/19 QUEtiapine [SEROquel] 25 mg PO QPM 08/04/19 08/04/19 Spironolactone 100 mg PO DAILY 08/04/19 08/04/19 lamoTRIgine [LaMICtal] 75 mg PO DAILY 08/04/19 08/04/19 Ciprofloxacin HCl [Cipro] 500 mg PO BID 9 Days #18 tablet 08/05/19 Ciprofloxacin [Cipro] 500 mg PO BID 9 Days tablet 08/05/19 Pantoprazole [Protonix] 40 mg PO QDAC 30 Days #0 tablet 08/05/19 levETIRAcetam [Keppra] 1,000 mg PO BID tablet 08/05/19 - Allergies Allergies/Adverse Reactions: Allergies Allergy/AdvReac Type Severity Reaction Status Date / Time cephalexin monohydrate * Allergy Welts Verified 08/06/19 18:37 [From Keflex] Review of Systems - Constitutional Constitutional: reports: Fatigue, Chills, Poor appetite. denies: Fever - Cardiovascular Cariovascular: reports: Edema. denies: Chest pain, Exertional dyspnea, Decr. exercise tolerance - Respiratory Respiratory: denies: Cough, SOB at rest, SOB with exertion - Gastrointestinal Gastrointestinal: reports: Abdominal pain, Constipation, Rectal bleeding, Nausea, Vomiting. denies: Diarrhea - Genitourinary Genitourinary: denies: Dysuria, Frequency, Urgency - Integumentary Integumentary: denies: Rash - Neurological Neurological: reports: General weakness. denies: Focal weakness - Hematologic/Lymphatic Hematologic/Lymphatic: reports: Anemia - All Other Systems All Other Systems: reports: Reviewed and negative Prior Level of Functionality: She is independent with her ADL's. Exam - Vital Signs Reviewed Vital Signs: Yes Vital Signs: Vital Signs x48h Temp Pulse Resp BP Pulse Ox 08/06/19 23:00 87 14 111/77 98 08/06/19 22:43 37 C 90 16 90/69 08/06/19 22:26 36.4 C L 92 18 113/77 08/06/19 22:00 84 16 113/77 99 08/06/19 21:35 94 14 98/73 99 08/06/19 21:07 37.4 C 85 14 113/80 99 08/06/19 20:53 37.1 C 87 14 108/66 08/06/19 20:35 88 14 108/66 96 08/06/19 18:35 36.0 C L 92 18 108/77 98 - Physical Exam General Appearance: positive: No acute distress, Alert Eyes Bilateral: positive: Normal inspection, Other (Scleral icternus noted.) ENT: positive: ENT inspection nml Neck: positive: Nml inspection Respiratory: positive: No respiratory distress. negative: Wheezes, Rales Cardiovascular: positive: Regular rate & rhythm, No murmur. negative: Tachyc ardia, Bradycardia, Systolic murmur, Diastolic murmur Abdomen: positive: Tenderness (Mild diffuse abdominal tenderness). negative: Non-tender, No distention (Mild distention), Guarding, Rebound Skin: positive: No rash, Warm Extremities: positive: Full ROM, Pedal edema (+3 pitting edema in left lower extremity, +2 pittend edema in right lower extremity) Neurologic/Psychiatric: positive: Oriented x3, Other (No focal motor deficits). negative: Disoriented to person, Disoriented to place, Disoriented to time Conclusion/Plan - Problem List (1) Anemia Conclusion/Plan: Her hemoglobin this evening is 7.6 which is relatively stable since the 02 of August. She is Hemoccult positive but I would have expected her hemoglobin to be declining over the past few days if this was a significant hemorrhage given she is also on Eliquis for her history of DVT. She be placed in observation for transfusion of 2 packed red blood cells which have been ordered by the emergency department physician. We will recheck a hemoglobin in the morning and if it is stable, we will discharge her home. If there is a significant decline, will need to be discussed with gastroenterology regarding transfer for endoscopy. Qualifiers: Anemia type: unspecified type Qualified Code(s): D64.9 - Anemia, unspecified (2) Abdominal pain Conclusion/Plan: Suspect this chronic abdominal pain is secondary to ascites or gastritis. There was concern for possible SBP during her prior admission but she not undergo a paracentesis given she was anticoagulated and there was not a lot of ascites present. She was started on ciprofloxacin empirically which will be continued. Continue oral Protonix. Qualifiers: Abdominal location: generalized Qualified Code(s): R10.84 - Generalized abdominal pain (3) Alcoholic cirrhosis of liver with ascites Conclusion/Plan: This appears secondary to alcohol use and possibly [place] as she does have a history of obesity requiring gastric sleeve and [id number] bypass. Her abdomen is distended and she does have ascites on imaging. LFTs are stable. (4) E. coli UTI Conclusion/Plan: Continue with ciprofloxacin as prescribed during her last admission. (5) Leukocytosis Conclusion/Plan: Has been chronic since May but is improving. No obvious signs of infection except for a UTI during her prior admission. She is on ciprofloxacin for this E. coli UTI as well as for possible SBP. We will continue her ciprofloxacin. Trend white count. (6) Hyponatremia Conclusion/Plan: Stable and chronic. She remains in the low 130s likely secondary to her liver cirrhosis and she is hypervolemic. We will continue to monitor. If declining, we will fluid restrict her. Continue oral Lasix (7) PTSD (post-traumatic stress disorder) Conclusion/Plan: Stable. Continue Seroquel. (8) Seizure disorder Conclusion/Plan: Stable. Continue Keppra and Lamictal. (9) History of DVT (deep vein thrombosis) Conclusion/Plan: Secondary to factor V Leiden deficiency. Continue Eliquis in the morning if her hemoglobin is stable. (10) Factor V Leiden Conclusion/Plan: Continue Eliquis in the morning once her hemoglobin is stable. - Lab Results Lab results reviewed: Yes Fish Bones: 08/06/19 19:44 08/06/19 19:44 - Diagnostic Imaging Results Diagnostic Imaging Results: positive: Final report reviewed Core Measures - Anticipated LOS I expect patient to be DC'd or transferred within 96 hours.: Yes - Issues Hospital Issues and Management Plan: 53-year-old female with anemia and Hemoccult-positive stool. She has follow-up with GI next week but recommended transfusion and trending hemoglobin. We will admit her for transfusion of packed red blood cells and recheck a hemoglobin.
[2019-08-06 23:37] LABS: GLUCOSE, URINE (UA) NEGATIVE (NEGATIVE); KETONES,URINE (UA) TRACE mg/dL (NEGATIVE); LEUKOCYTE ESTERASE, URINE NEGATIVE (NEGATIVE); OCCULT BLOOD,URINE SMALL (NEGATIVE); PH,URINE 5.5 PH (5.0-7.5); PROTEIN,URINE 30 mg/dL (NEGATIVE)
[2019-08-06 23:45] LABS: BILIRUBIN,URINE MODERATE (NEGATIVE); ICTOTEST,URINE POSITIVE
[2019-08-06 23:46] LABS: CLARITY,URINE CLEAR (CLEAR)
[2019-08-06 23:54] LABS: BACTERIA,URINE None Seen /HPF (None Seen); CASTS, URINE 0-2 Hyaline Casts /LPF; RBC,URINE 0-5 /HPF (0-5); SQUAMOUS EPITHELIAL CELL,UR MANY Squamous (<= Few)
[2019-08-07] MEDS: levETIRAcetam 250 MG TABLET PO SCH ×2 (01:32→08:39)
[2019-08-07] MEDS: SODIUM CHLORIDE FLUSH 0.9% 10 ML SYRINGE IVP SCH ×2 (01:36→08:44)
[2019-08-07 05:20] LABS: BASOPHILS # (AUTO) 0.1 10^3/uL (0.0-0.1); BASOPHILS % (AUTO) 0.5 %; EOSINOPHILS # (AUTO) 0.3 10^3/uL (0.0-0.7); EOSINOPHILS % (AUTO) 1.8 %; HGB - HEMOGLOBIN 9.1 g/dL (12.0-16.0); LYMPHOCYTES # (AUTO) 1.5 10^3/uL (1.5-3.5); LYMPHOCYTES % (AUTO) 10.1 %; MEAN CORPUSCULAR HGB CONC 33.1 g/dL (32.0-36.0); MEAN CORPUSCULAR VOLUME 93.5 fL (81.0-99.0); MEAN PLATELET VOLUME 8.6 fL (7.9-10.8); MONOCYTES # (AUTO) 1.3 10^3/uL (0.0-1.0); NEUTROPHILS # (AUTO) 11.5 10^3/uL (1.5-6.6); NEUTROPHILS % (AUTO) 77.9 %; PLT - PLATELET COUNT 319 10^3/uL (130-450); RED BLOOD COUNT 2.94 10^6/uL (4.20-5.40); RED CELL DISTRIBUTION WIDTH 19.5 % (12.0-15.0); WHITE BLOOD COUNT 14.8 x10^3/uL (4.8-10.8)
[2019-08-07 05:40] LABS: ALBUMIN 1.5 g/dL (3.2-5.5); BILIRUBIN,TOTAL 4.5 mg/dL (0.2-1.0); CALCIUM 7.2 mg/dL (8.5-10.3); CREATININE 0.7 mg/dL (0.4-1.0); TOTAL PROTEIN 5.5 g/dL (6.7-8.2)
[2019-08-07] MEDS ORDERED: ONDANSETRON ODT 4 MG TABLET TL PRN (06:53)
[2019-08-07] MEDS ORDERED: PANTOPRAZOLE 40 MG TABLET PO SCH (07:00)
--- NOTE | 2019-08-07 08:09 | PHARMACY PROGRESS NOTE ---
- Best Possible Medication History Admit Date and Time: 08/06/19 3248 Processed by: Pharmacy Medication History completed: Yes Patient Interview: Pt unable to participate Secondary Source(s): Pharmacy records, Previous admit records As the person ultimately responsible for medication therapy, providers are able to order a medication from an existing home medication list in [facility] via the "Reconcile Routine" prior to Confirmation of that medication by client support consultant. Such practice is discouraged except when the physician, in their clinical judgment, deems that a medical need exists for a medication without regard to previous use.
[2019-08-07 08:12] VITALS: BP 119/73
[2019-08-07] MEDS: lamoTRIgine 25 MG TABLET PO SCH ×2 (08:39→10:59)
[2019-08-07] MEDS: CIPROFLOXACIN 250 MG TABLET PO SCH ×2 (08:39→10:58)
[2019-08-07] MEDS: FUROSEMIDE 40 MG TABLET PO SCH ×2 (08:40→10:59)
[2019-08-07] MEDS: SPIRONOLACTONE 25 MG TABLET PO SCH ×2 (08:44→10:59)
--- NOTE | 2019-08-07 14:25 | Discharge Plan ---
Discharge Plan Problem Reviewed?: Yes Disposition: Home, Self Care Condition: Stable Prescriptions: oxyCODONE [Roxicodone] 5 mg PO Q4-6H PRN #20 tablet PRN Reason: Pain Diet: Regular Activity Restrictions: No Restrictions Shower Restrictions: No Driving Restrictions: Yes (No driving when taking narcotic pain meds) Weight Bearing: Full Weight Instruction Topics: Anemia, Care Palliative, Hospice Start, Cirrhosis Liver Id, COVID-19 [facility], COVID-19 [facility] Statement, Flu and Cold: Nutrition, Prevention and Treatment Tips No Smoking: If you smoke, Please STOP! Call for help. Follow-up with: JAIME ARANGO [Primary Care Provider] -
--- NOTE | 2019-08-07 14:31 | DISCHARGE SUMMARY ---
"Discharge Summary Admit Date: 08/07/19 Discharge Date: 08/07/19 Discharging Provider: Nam Moore MD Primary Care Provider: My Kenyon DO Code Status: Attempt Resuscitation Condition at Discharge: Stable Discharge Disposition: 01 Home, Self Care - DIAGNOSES Admission Diagnoses: Anemia, secondary to chronic GI bleed and anti-coagulation Chronic abdominal pain Chronic nausea and vomiting Liver cirrhosis Epilepsy Discharge Diagnoses with Status of Each Condition: Anemia, secondary to chronic GI bleed and anti-coagulation -Status post 2 unit PRBC, H&H improved. Stable, but anticipate possible rebleeding episodes given e nd-stage liver disease with likely varices or other persistent source of bleeding while on anticoagulation for factor V Leyden deficiency Chronic abdominal pain -Stable, patient appears to be comfortable at rest Chronic nausea and vomiting - Stable, patient refused antiemetics Liver cirrhosis - Advanced, recommended palliative care and she has already spoken with palliative care nurse Epilepsy- Stable, no evidence of seizure activity, patient states she has not taken seizure medications in 2 years, and does not want to take medication anymore. I advised she discuss further with PCP - HPI History of Present Illness: This is a 53-year-old female with a past medical history significant for liver cirrhosis, prior history of alcoholism, Factor V Leiden, history of DVT on Eliquis, epilepsy, PTSD who presents today to the emergency department complaining of abdominal pain. She was just discharged from here a couple of days ago after being treated for hepatic encephalopathy. This was a new diagnosis for her and she was treated with lactulose with improvement in her ammonia. At that time, a paracentesis was considered but given there was not a significant amount of ascites on imaging, it was deferred. She was given ceftriaxone and discharged on ciprofloxacin empirically for SBP. Her hemoglobin during that admission had increased to 7.9 prior to discharge. Her stool occult on that admission was positive but she did not have signs of significant bleeding. Today she returned to the emergency department after her daughter spoke with the physician who recommended that she head to the emergency department. She told the provider in the emergency department that she noted bright red blood per rectum today. Repeat labs during that visit showed a hemoglobin of 7.3. Given her stool was Hemoccult positive, the hospitalist at [facility] was contacted who felt the patient would be too complex for their facility and recommended transfer to a facility with gastroenterology such as [facility]. The patient also did not want to be admitted here. Gastroenterology at [facility] (Dr. Morgan) was contacted and they felt that she could just be transfused and followed up in clinic next week. The patient denied a transfusion and intravenous placement and she left AGAINST MEDICAL ADVICE. She returned to the emerge department a few hours later and is now agreeable to a blood transfusion as was previously planned. Given this, I was consulted by the emergency department physician for observation. The patient states that she continues to have abdominal pain that is chronic in nature has been present for a few months now. She did have an endoscopy and colonoscopy back in May. She reports she had a couple of polyps that were benign. She states these were performed at [facility] but she is not sure who the provider was. Gastroenterology did not have records of these procedures when they were contacted by the emergency department provider earlier on in the day. The patient reports she has no fevers but does have chills which is also chronic for her and that she always feels cold. She reports some nausea and poor appetite but this is also ongoing. She is taking Eliquis for her history of DVT and factor V Leiden. She reports noticing some blood in her stool at times. She states she has not had a bowel movement today although she told the provider earlier that she had some bright red blood per rectum. Repeat labs in the afternoon showed her hemoglobin was 7.6. She would like to be a full code. - CONSULTS | PROCEDURES Procedures: Transfusion 2 units PRBCs - HOSPITAL COURSE Hospital Course: Patient was admitted due to abdominal pain, which is chronic, and anemia, which I believe is also chronic given the patient's underlying advanced liver disease, with probable continued GI bleed exacerbated by the need for Eliquis secondary to factor V Leyden deficiency. Her abdominal pain appears to be at baseline on morning rounds, in fact patient appears to be quite comfortable in bed and abdominal exam is benign. She does complain of nausea, but refuses antiemetics. With regards to the anemia, she received 2 units PRBCs, with an adequate increase in her hemoglobin and hematocrits as documented below. At this point, she is essentially at baseline with respect to her chronic medical conditions and when informed of this, patient states that she wishes to go home. I had a mikayla discussion with the patient regarding her liver cirrhosis, and her overall poor prognosis. She seems to be unaware of her advanced liver disease, and insists that she has not used alcohol for some time, though she is unable to give me an exact timeframe. She states that she has not used drugs for years. Is unclear whether this is in fact accurate, and if it is, still unclear as to whether or not alcoholism in the past is the underlying etiology for the liver failure versus [place] secondary to obesity prior to her gastric bypass surgeries. 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 In any case, she is a good candidate for palliative care, and consult was made after her last discharge, and she was able to speak to the palliative care nurse today during this hospital stay. She appears to be receptive to this and her daughter is supportive of palliative care and realizes that she eventually may need hospice. I think that future admissions, interventions, etc., should be pursued in this context. But of course, if any other acute issues should arise patient is advised to seek medical attention and if necessary return to the emergency room for acute worsening of abdominal pain, symptomatic anemia, etc. - ALLERGIES Allergies/Adverse Reactions: Allergies Allergy/AdvReac Type Severity Reaction Status Date / Time cephalexin monohydrate * Allergy Welts Verified 08/06/19 18:37 [From [employer]] - MEDICATIONS Home Medications: Ambulatory Orders Medication Instructions Recorded Confirmed Furosemide 40 mg PO DAILY 08/04/19 08/07/19 Hydrocortisone [Procto-Med Hc] 1 applic RC QID PRN 08/04/19 08/07/19 Omeprazole 40 mg PO QDAC 08/04/19 08/07/19 Ondansetron [Ondansetron Odt] 4 mg PO AC 08/04/19 08/07/19 QUEtiapine [SEROquel] 25 mg PO QPM 08/04/19 08/07/19 Spironolactone 100 mg PO DAILY 08/04/19 08/07/19 lamoTRIgine [LaMICtal] 75 mg PO DAILY 08/04/19 08/07/19 Ciprofloxacin [Cipro] 500 mg PO BID 9 Days tablet 08/05/19 08/07/19 Ciprofloxacin [Cipro] 500 mg PO BID tablet 08/07/19 Furosemide [Lasix] 40 mg PO DAILY tablet 08/07/19 Ondansetron Odt [Zofran Odt] 4 mg TL Q6HR PRN tablet 08/07/19 Pantoprazole [Protonix] 40 mg PO QDAC tablet 08/07/19 QUEtiapine [SEROquel] 25 mg PO QPM tablet 08/07/19 Spironolactone [Aldactone] 100 mg PO DAILY tablet 08/07/19 lamoTRIgine [LaMICtal] 75 mg PO DAILY tablet 08/07/19 levETIRAcetam [Keppra] 1,000 mg PO BID tablet 08/07/19 oxyCODONE [Roxicodone] 5 mg PO Q4-6H PRN #20 tablet 08/07/19 - PHYSICAL EXAM AT DISCHARGE General Appearance: positive: No acute distress Eyes Bilateral: positive: Normal inspection ENT: positive: ENT inspection nml, Pharynx nml, No signs of dehydration, Other (No teeth) Neck: positive: Nml inspection, Thyroid nml, No JVD Respiratory: positive: Chest non-tender, No respiratory distress, Breath sounds nml Cardiovascular: positive: Regular rate & rhythm, No murmur, No gallop Abdomen: positive: Non-tender, Nml bowel sounds. negative: No organomegaly, No distention, Guarding, Rebound, Mass Extremities: positive: No pedal edema Neurologic/Psychiatric: positive: Oriented x3, CN's nml (2-12) - LABS Result Diagrams: 08/07/19 05:05 08/07/19 05:05 - FOLLOW UP Follow Up: F/U with PCP in 1-2 weeks - TIME SPENT Time Spent in Discharge (Minutes): 38"
[2019-08-07] MEDS ORDERED: QUEtiapine 25 MG TABLET PO SCH (21:00)
== END 2019-08-07 15:35 | disposition home or self-care (01) ==
LOC: ED 18:30 → MS2 23:13
PROVIDERS: ADMIT Internal Medicine; ATTEND Family Medicine Sports Medicine
DX: D50.0 Iron deficiency anemia secondary to blood loss (chronic) (principal); K92.2 Gastrointestinal hemorrhage, unspecified; D68.318 Other hemorrhagic disorder due to intrinsic circulating anticoagulants, antibodies, or inhibitors; T45.515A Adverse effect of anticoagulants, initial encounter; Y92.009 Unspecified place in unspecified non-institutional (private) residence as the place of occurrence of the external cause; D68.51 Activated protein C resistance; N39.0 Urinary tract infection, site not specified; B96.20 Unspecified Escherichia coli [E. coli] as the cause of diseases classified elsewhere; E87.1 Hypo-osmolality and hyponatremia; K70.31 Alcoholic cirrhosis of liver with ascites; F10.21 Alcohol dependence, in remission; I10 Essential (primary) hypertension; D72.829 Elevated white blood cell count, unspecified; E87.70 Fluid overload, unspecified; G40.909 Epilepsy, unspecified, not intractable, without status epilepticus; K59.09 Other constipation; R32 Unspecified urinary incontinence; F43.10 Post-traumatic stress disorder, unspecified; F41.0 Panic disorder [episodic paroxysmal anxiety]; F32.9 Major depressive disorder, single episode, unspecified; Z98.84 Bariatric surgery status; K72.90 Hepatic failure, unspecified without coma; Z51.5 Encounter for palliative care; Z79.01 Long term (current) use of anticoagulants; Z86.718 Personal history of other venous thrombosis and embolism; Z86.711 Personal history of pulmonary embolism; Z53.29 Procedure and treatment not carried out because of patient's decision for other reasons
CPT/HCPCS: 36415; 36430; 51798; 80048; 80053; 80076; 81001; 82140; 83690; 83735; 84100; 85025; 85610; 85730; 86850; 86900; 86901; 86920; 96361; 96374; 96375; 99283; 99284; A9270; G0378; J1200; P9016; Q0162; 81003; 87086

== ENCOUNTER 2019-08-26 14:40 | Outpatient (CLI) | payer MEDICARE | END 2019-08-26 14:41 | disposition critical access hospital (66) | LOC: EMS 14:40 | PROVIDERS: ATTEND Surgery | DX: R11.2 Nausea with vomiting, unspecified (principal); R53.1 Weakness | CPT/HCPCS: A0425; A0429 ==

== ENCOUNTER 2019-08-26 14:43 | Emergency (ER) | payer MEDICARE ==
[2019-08-26] MEDS ORDERED: ONDANSETRON 4 MG/2 ML VIAL IVP STA (14:54)
[2019-08-26] MEDS ORDERED: MORPHINE 2 MG/ML CARPUJECT IVP STA (15:29)
--- NOTE | 2019-08-26 15:35 | ED Physician Documentation ---
PD HPI ABD PAIN - Stated complaint Stated Complaint: NAUSEA - Chief complaint Chief Complaint: Abd Pain - History obtained from History obtained from: Patient (Bing is a 53 yo F w/ multiple chronic medical conditions including liver cirrhosis who is well known to our ED who presents today with nausea and vomiting for several days. States she can't keep anything down. She feels achiness all over. NO fever, cough or URI sx, chest pain, dys pnea, diarrhea or constipation. States it "kind of" hurts when she voids, but no urg/freq/hematuria. She reports bloody stool a week or so ago but none recently. Was here a few weeks ago and recommended transfusion for decreased hgb/hct but she declined and signed out AMA and did not follow up with GI as outpatient. Taking meds as prescribed, no confusion or encephalopathic behavior, no drugs/etoh.) Review of Systems Constitutional: reports: Reviewed and negative Eyes: reports: Reviewed and negative Ears: reports: Reviewed and negative Nose: reports: Reviewed and negative Throat: reports: Reviewed and negative Cardiac: reports: Reviewed and negative Respiratory: reports: Reviewed and negative GI: reports: Abdominal Pain, Nausea, Vomiting, Bloody / black stool. denies: Constipation, Diarrhea, Hematemesis : reports: Dysuria. denies: Frequency, Hesitancy, Unable to Void, Incontinent, Hematuria Skin: reports: Reviewed and negative Musculoskeletal: reports: Reviewed and negative Neurologic: reports: Generalized weakness. denies: Focal weakness, Numbness, Difficulty speaking, Near syncope, Syncope, Seizure, Confused, Altered mental status, Unresponsive, Headache, Head injury, LOC Psychiatric: reports: Reviewed and negative Endocrine: reports: Reviewed and negative PD PAST MEDICAL HISTORY - Past Medical History Cardiovascular: Hypertension, Deep vein thrombosis, Pulmonary embolism Respiratory: None Neuro: Seizure disorder Endocrine/Autoimmune: None GI: Chronic constipation, Other : Incontinence HEENT: None Psych: Depression, Anxiety, Panic attacks, Post traumatic stress disorder Musculoskeletal: None Derm: None, Other - Past Surgical History Past Surgical History: Yes General: Gastric surgery, Colonoscopy, EGD Ortho: 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: Dilation and currettage, Hysterectomy, Breast reduction Cardiovascular: Vascular surgery HEENT: Tonsil/Adenoidectomy - Present Medications Home Medications: Ambulatory Orders Medication Instructions Recorded Confirmed Furosemide 40 mg PO DAILY 08/04/19 08/07/19 Hydrocortisone [Procto-Med Hc] 1 applic RC QID PRN 08/04/19 08/07/19 Omeprazole 40 mg PO QDAC 08/04/19 08/07/19 Ondansetron [Ondansetron Odt] 4 mg PO AC 08/04/19 08/07/19 QUEtiapine [SEROquel] 25 mg PO QPM 08/04/19 08/07/19 Spironolactone 100 mg PO DAILY 08/04/19 08/07/19 lamoTRIgine [LaMICtal] 75 mg PO DAILY 08/04/19 08/07/19 Ciprofloxacin [Cipro] 500 mg PO BID 9 Days tablet 08/05/19 08/07/19 Ciprofloxacin [Cipro] 500 mg PO BID tablet 08/07/19 Furosemide [Lasix] 40 mg PO DAILY tablet 08/07/19 Ondansetron Odt [Zofran Odt] 4 mg TL Q6HR PRN tablet 08/07/19 Pantoprazole [Protonix] 40 mg PO QDAC tablet 08/07/19 QUEtiapine [SEROquel] 25 mg PO QPM tablet 08/07/19 Spironolactone [Aldactone] 100 mg PO DAILY tablet 08/07/19 lamoTRIgine [LaMICtal] 75 mg PO DAILY tablet 08/07/19 levETIRAcetam [Keppra] 1,000 mg PO BID tablet 08/07/19 oxyCODONE [Roxicodone] 5 mg PO Q4-6H PRN #20 tablet 08/07/19 - Allergies Allergies/Adverse Reactions: Allergies Allergy/AdvReac Type Severity Reaction Status Date / Time cephalexin monohydrate * Allergy Welts Verified 08/26/19 14:49 [From [employer] - Social History Does the pt smoke?: No Smoking Status: Never smoker Does the pt drink ETOH?: Yes Does the pt have substance abuse?: No - Immunizations Immunizations are current?: Yes - POLST Patient has POLST: No PD ED PE NORMAL - Vitals Vital signs reviewed: Yes - General General: Alert and oriented X 3, No acute distress, Other (Thin, chronically ill appearing. ) - HEENT HEENT: Atraumatic, PERRL, EOMI, Moist mucous membranes, Other (mild icterus) - Neck Neck: Supple, no meningeal sign, No bony TTP, No adenopathy, No JVD - Cardiac Cardiac: RRR, No murmur, No gallop, No rub, Strong equal pulses - Respiratory Respiratory: No respiratory distress, Clear bilaterally - Abdomen Abdomen: Normal bowel sounds, Soft, Other (Generalized ttp w/o guarding, slightly distended, no significant ascites) - Back Back: No CVA TTP, No spinal TTP - Derm Derm: Normal color, Warm and dry, No rash - Extremities Extremities: No deformity, No tenderness to palpate, Normal ROM s pain, No edema, No calf tenderness / cord - Neuro Neuro: Alert and oriented X 3 Eye Opening: Spontaneous Motor: Obeys Commands Verbal: Oriented GCS Score: 15 - Psych Psych: Normal mood, Normal affect Results - Vitals Vitals: Vital Signs - 24 hr 08/26/19 08/26/19 08/26/19 14:49 16:52 18:00 Temperature 37.3 C Heart Rate 97 100 91 Respiratory 16 16 18 Rate Blood Pressure 124/78 91/65 113/75 O2 Saturation 98 93 96 08/26/19 08/26/19 19:28 21:02 Temperature Heart Rate 76 78 Respiratory 16 18 Rate Blood Pressure 101/73 100/60 O2 Saturation 94 94 Oxygen O2 Source Room air - Labs Labs: Laboratory Tests 08/26/19 08/26/19 08/26/19 15:21 15:21 15:21 WBC 12.0 H RBC 3.12 L Hgb 10.1 L Hct 29.5 L MCV 94.6 MCH 32.4 H MCHC 34.2 RDW 18.2 H Plt Count 459 H MPV 8.5 Neut # (Auto) 9.6 H Lymph # (Auto) 1.2 L Gove # (Auto) 1.1 H Eos # (Auto) 0.1 Baso # (Auto) 0.1 Absolute Nucleated RBC 0.00 Nucleated RBC % 0.0 PT 14.5 H INR 1.3 H Sodium 131 L Potassium 2.7 L Chloride 90 L Carbon Dioxide 27 Anion Gap 14.0 H BUN 10 Creatinine 1.1 H Estimated GFR (MDRD) 52 L Glucose 89 Calcium 7.7 L Total Bilirubin 5.4 H AST 89 H ALT 31 Alkaline Phosphatase 198 H Total Protein 6.5 L Albumin 2.1 L Globulin 4.4 H Albumin/Globulin Ratio 0.5 L Lipase 43 Urine Color Urine Clarity Urine pH Ur Specific [place] Urine Protein Urine Glucose (UA) Urine Ketones Urine Occult Blood Urine Nitrite Urine Bilirubin Urine Urobilinogen Ur Leukocyte Esterase Urine RBC Urine WBC Ur Squamous Epith Cells Urine Bacteria Ur Microscopic Review Urine Culture Comments 08/26/19 08/26/19 17:54 20:42 WBC RBC Hgb Hct MCV MCH MCHC RDW Plt Count MPV Neut # (Auto) Lymph # (Auto) Gove # (Auto) Eos # (Auto) Baso # (Auto) Absolute Nucleated RBC Nucleated RBC % PT INR Sodium 130 L Potassium 3.3 L Chloride 92 L Carbon Dioxide 26 Anion Gap 12.0 BUN 10 Creatinine 1.1 H Estimated GFR (MDRD) 52 L Glucose 76 Calcium 7.5 L Total Bilirubin AST ALT Alkaline Phosphatase Total Protein Albumin Globulin Albumin/Globulin Ratio Lipase Urine Color DARK YELLOW Urine Clarity HAZY Urine pH 5.5 Ur Specific [place] 1.025 Urine Protein TRACE Urine Glucose (UA) NEGATIVE Urine Ketones 15 H Urine Occult Blood NEGATIVE Urine Nitrite NEGATIVE Urine Bilirubin LARGE H Urine Urobilinogen >=8.0 H Ur Leukocyte Esterase TRACE H Urine RBC None Seen Urine WBC 0-3 Ur Squamous Epith Cells MANY Squamous H Urine Bacteria Many H Ur Microscopic Review INDICATED Urine Culture Comments NOT INDICATED PD MEDICAL DECISION MAKING - ED course Complexity details: reviewed old records, reviewed results, re-evaluated patient, considered differential, d/w patient, other (Discussed with Dr. Veronica briefly. ) ED course: Bing presented with nausea and vomiting and was found to mildly dehydrated with hypokalemia. She does have a rising bilirubin and her MELD score is 21. She was given slow IV rehydration and anti-emetics including zofran and phenergan that were not effective and ultimately 1mg of IV haldol which was hlepful. She received PO and IV potassium replacement and repeat potassium levels improved. She initially failed a po challenge but after receiving Haldol she felt better and tolerated po and was active and at baseline. Vitals remained stable, no encephalopathy. Pt to discharge home, discussed clear liquid diet and advancing if tolerated. She did report blood in the stool a week or so ago but her H/H is up from prior and she did not follow up as outpatient w/ GI as arranged at last visit. She is to follow up with her primary doctor in 1-2 weeks to follow up on hypokalemia and I recommended she try to reschedule with GI to discuss blood per rectum and chronic liver disease. She is to return at anytime to the ER if her symptoms worsen. Departure - Departure Disposition: 01 Home, Self Care Clinical Impression: Dehydration, Hypokalemia Vomiting Qualifiers: Vomiting type: unspecified Vomiting Intractability: non-intractable Nausea presence: with nausea Qualified Code(s): R11.2 - Nausea with vomiting, unspecified Condition: Good Instructions: ED Dehydration, ED Nausea Vomiting Comments: Please follow up with your primary doctor within the next week for repeat lab evaluation. Discharge Date/Time: 08/26/19 21:01
[2019-08-26 15:41] LABS: BASOPHILS # (AUTO) 0.1 10^3/uL (0.0-0.1); BASOPHILS % (AUTO) 0.5 %; EOSINOPHILS # (AUTO) 0.1 10^3/uL (0.0-0.7); EOSINOPHILS % (AUTO) 0.6 %; HGB - HEMOGLOBIN 10.1 g/dL (12.0-16.0); LYMPHOCYTES # (AUTO) 1.2 10^3/uL (1.5-3.5); LYMPHOCYTES % (AUTO) 9.7 %; MEAN CORPUSCULAR HEMOGLOBIN 32.4 pg (27.0-31.0); MEAN CORPUSCULAR HGB CONC 34.2 g/dL (32.0-36.0); MEAN CORPUSCULAR VOLUME 94.6 fL (81.0-99.0); MEAN PLATELET VOLUME 8.5 fL (7.9-10.8); MONOCYTES # (AUTO) 1.1 10^3/uL (0.0-1.0); MONOCYTES % (AUTO) 9.3 %; NEUTROPHILS # (AUTO) 9.6 10^3/uL (1.5-6.6); NEUTROPHILS % (AUTO) 79.4 %; PLT - PLATELET COUNT 459 10^3/uL (130-450); RED BLOOD COUNT 3.12 10^6/uL (4.20-5.40); RED CELL DISTRIBUTION WIDTH 18.2 % (12.0-15.0)
[2019-08-26] MEDS ORDERED: PROMETHAZINE INJ 12.5 MG in SODIUM CHLORIDE 0.9% 50 ML IV STA (15:46)
[2019-08-26 15:53] LABS: ALBUMIN 2.1 g/dL (3.2-5.5); ALBUMIN/GLOBULIN RATIO 0.5 (1.0-2.2); BILIRUBIN,TOTAL 5.4 mg/dL (0.2-1.0); CALCIUM 7.7 mg/dL (8.5-10.3); CREATININE 1.1 mg/dL (0.4-1.0); TOTAL PROTEIN 6.5 g/dL (6.7-8.2)
[2019-08-26 15:57] LABS: INR 1.3 (0.8-1.2); PT - PROTHROMBIN TIME 14.5 secs (9.9-12.6)
[2019-08-26] MEDS ORDERED: POTASSIUM CHLOR 20 MEQ/100 ML 20 MEQ/100 ML BAG IV ONE (16:22)
[2019-08-26] MEDS ORDERED: SODIUM CHLORIDE 0.9% 500 ML IV ONE (16:23)
[2019-08-26] MEDS ORDERED: POTASSIUM CHLORIDE 20 MEQ/15 ML UDC PO STA (16:32)
[2019-08-26] MEDS: POTASSIUM CHLOR 10 MEQ/100 ML 10 MEQ/100 ML BAG IV SCH ×2 (16:53→17:58)
[2019-08-26 18:03] LABS: GLUCOSE, URINE (UA) NEGATIVE (NEGATIVE); KETONES,URINE (UA) 15 mg/dL (NEGATIVE); LEUKOCYTE ESTERASE, URINE TRACE (NEGATIVE); NITRITE,URINE NEGATIVE (NEGATIVE); OCCULT BLOOD,URINE NEGATIVE (NEGATIVE); PH,URINE 5.5 PH (5.0-7.5); PROTEIN,URINE TRACE mg/dL (NEGATIVE); UROBILINOGEN,URINE >=8.0 E.U./dL (NORMAL)
[2019-08-26 18:05] LABS: BILIRUBIN,URINE LARGE (NEGATIVE); CLARITY,URINE HAZY (CLEAR); ICTOTEST,URINE POSITIVE
[2019-08-26 18:12] LABS: BACTERIA,URINE Many /HPF (None Seen); RBC,URINE None Seen /HPF (0-5); SQUAMOUS EPITHELIAL CELL,UR MANY Squamous (<= Few)
[2019-08-26] MEDS ORDERED: HALOPERIDOL 5 MG/ML VIAL IVP ONE (18:33)
[2019-08-26 20:53] LABS: CALCIUM 7.5 mg/dL (8.5-10.3); CREATININE 1.1 mg/dL (0.4-1.0)
[2019-08-26 21:03] VITALS: BP 100/60
== END 2019-08-26 21:01 | disposition home or self-care (01) ==
LOC: EDUNIT# → ED 14:43
DX: E86.0 Dehydration (principal); E87.6 Hypokalemia; R11.2 Nausea with vomiting, unspecified; K74.60 Unspecified cirrhosis of liver; I10 Essential (primary) hypertension
CPT/HCPCS: 36415; 80048; 80053; 81001; 83690; 85025; 85610; 96365; 96366; 96367; 96375; 99284; A9270; J7040; 81003; 87086

== ENCOUNTER 2019-09-03 12:42 | Outpatient (CLI) | payer MEDICARE | END 2019-09-03 12:43 | disposition home or self-care (01) | LOC: PC 12:42 | PROVIDERS: ATTEND Nurse Practitioner Adult Health | DX: Z53.9 Procedure and treatment not carried out, unspecified reason (principal) ==